=== PATIENT | male | born 1965 | race Caucasian/White ===

== ENCOUNTER 2022-05-21 07:31 | Inpatient (IN) ==
[2022-05-21] MEDS ORDERED: IOPAMIDOL 100 ML BOTTLE IV ONE (07:32)
--- NOTE | 2022-05-21 07:38 | Emergency Department Note ---
HPI General Chief complaint: Alcohol Stated complaint: Alcohol withdrawls Time Seen by Provider: 05/21/22 07:37 Mode of arrival: EMS History of Present Illness HPI Narrative: Narrative: Patient is a 56-year-old male with a past medical history of atrial fibrillati on, rectal cancer, alcohol withdrawal including DTs and patient, and bipolar disorder who presents to the emergency department due to desire to detox from alcohol, but concern potential withdrawal when doing this. Patient states that he binge drinks, and has gone days without alcohol, but has had severe alcohol withdrawal in the past, so wanted to be in a controlled setting as he desires to detox from alcohol at this time. He states that his last drink was approximately 2 to 3 hours ago. He states that he has also had shortness of breath and cough for the last couple of days. He denies runny nose or sore throat. He denies fevers or chills. He endorses chest pain at night. He states that it wakes him up. This is a sharp chest pain without radiation in the center of his chest. It worsens with deep breathing, but he has not noticed any other palliative or provocative factors. He has a history of atrial fibrillation has not been taking his medications, including blood thinner, for a week. Patient denies skin color changes or swelling of the extremities. He endorses intermittent constipation as well as intermittent diarrhea. He does notice blood in his stool, but states that this has been chronic with his rectal carcinoma. He states that he has had chemotherapy, but it has been a while since his last chemotherapy session. He denies any other concerns at this time. Related Data Allergies Allergy/AdvReac Type Severity Reaction Status Date / Time No Known Drug Allergies Allergy Verified 05/21/22 17:48 Review of Systems ROS ROS Narrative: Narrative: Constitutional: Denies fever or weakness Eyes: Denies eye pain or vision change ENT ED: Denies throat pain, hearing loss or rhinorrhea Cardiovascular: Reports chest pain; Denies dyspnea on exertion, orthopnea or edema Respiratory: Reports shortness of breath and cough; Denies phlegm or hemoptysis Gastrointestinal: Reports hematochezia; Denies abdominal pain, nausea, vomiting, diarrhea, constipation or melena Genitourinary: Denies dysuria, frequency, hematuria or incontinence Musculoskeletal: Denies back pain or myalgia Integumentary: Denies rash or lesions Neurological: Denies headache, weakness, numbness, confusion, abnormal gait or dizziness Psychiatric: Denies anxiety, suicidal thoughts or homicidal thoughts Endocrine: Denies fatigue or polyuria Hematological/Lymphatic: Denies easy bleeding or easy bruising [facility] Narrative Patient History Narrative: Narrative: Medical/Surgical/Family History All Active Problems Atrial fibrillation (Acute) Tremor (Acute) Nonsustained ventricular tachycardia (Acute) ADHD (Acute) Arthritis (Acute) Bipolar disorder (Acute) Rectal carcinoma (Acute) Rectal pain (Acute) Alcohol intoxication (Acute) UTI (urinary tract infection) (Acute) Headache (Acute) Seizure (Acute) Alcoholism /alcohol abuse (Acute) Finger fracture, left (Acute) Chest pain (Acute) Alcohol withdrawal (Acute) Hernia, hiatal (Acute) Head injury (Acute) Acute head injury (Acute) Traumatic hematoma of head (Acute) Medical History ADHD Alcohol intoxication Alcoholism /alcohol abuse Arthritis Atrial fibrillation Bipolar disorder Headache Nonsustained ventricular tachycardia Rectal carcinoma Rectal pain Seizure Tremor UTI (urinary tract infection) Surgical History No pertinent past surgical history Family History Other No pertinent family history Social History Smoking Status: Former smoker Exam Narrative Narrative: Narrative: General General appearance: Present alert; Absent anxious or appears intoxicated Head Head: Present atraumatic and normocephalic Eye Eye: Present PERRL and EOMI; Absent scleral icterus ENT ENT: Present mucous membranes moist; Absent nasal congestion Neck Neck: Present full ROM; Absent tenderness Chest Chest: Present normal inspection and symmetric chest wall rise; Absent tenderness Respiratory Respiratory: Present rales/crackles (Right lower lung field); Absent respiratory distress or accessory muscle use Cardiovascular Cardiovascular: Present regular rate, normal rhythm and normal heart sounds Adbominal Abdominal: Present soft and normal bowel sounds; Absent distention or tenderness Rectal Rectal: Present deferred Extremities Extremities: Present normal inspection and full ROM; Absent tenderness Back Back: Present normal inspection and full ROM; Absent tenderness Neurological Neurological: Present alert and oriented X3 Psychiatric Psychiatric: Present normal affect and normal mood Skin Skin: Present warm (WNL), dry and normal color Course Vital Signs Vital signs: Vital Signs Temperature 97.0 F 05/21/22 07:35 Pulse Rate 144 H 05/21/22 07:35 Respiratory Rate 20 05/21/22 07:35 Blood Pressure 142/117 05/21/22 07:35 Pulse Oximetry (%) 96 05/21/22 07:35 Oxygen Delivery Method 05/21/22 07:35 Temperature 97.8 F 05/21/22 17:38 Pulse Rate 120 H 05/21/22 17:46 Respiratory Rate 19 05/21/22 17:46 Blood Pressure 123/93 05/21/22 17:46 Pulse Oximetry (%) 94 05/21/22 17:46 Oxygen Delivery Method 05/21/22 17:44 Oxygen Flow Rate (L/min) 0 05/21/22 17:44 MDM MDM Narrative Medical decision making narrative: Narrative: Patient is a 56-year-old male who presents to the emergency department due to desire to detox from alcohol, but concern for alcohol withdrawal. Patient is found to have atrial fibrillation with RVR. We are giving patient ties him and will monitor response. Given patient's shortness of breath and chest pain there is concern for potential pneumonia, pulmonary embolus, or ACS. Patient is unlikely to have pericarditis or myocarditis given absence of EKG findings other than atrial fibrillation with RVR. Patient is found to have a low potassium as well as a low calcium. We will replete these. Patient's A. fib with RVR converted to normal sinus rhythm after diltiazem and half of a banana bag. Patient again converted to atrial fibrillation with RVR. We placed patient on a diltiazem drip at that time. Due to atrial fibrillation with RVR and absence of cardiology, as well as concern for bed availability we attempted to transfer this patient. I spoke to the hospitalist in [place] who refused to transfer patient stating that they did not offer a higher level of care and requested that I speak to our hospitalist. I spoke to Dr. Garcia who accepted patient for admission. Lab Data Result diagrams: 05/21/22 07:45 Labs: Lab Results 05/21/22 05/21/22 05/21/22 Range/Units 07:45 07:45 07:45 WBC 7.7 (4.5-11.0) K/mcL RBC 4.37 L (4.63-6.08) M/mcL Hgb 13.6 L (13.7-17.5) g/dL Hct 39.6 L (40.1-51.0) % POC Hct (41-55) MCV 90.6 (80.0-100.0) fL MCH 31.1 (26.0-34.0) pg MCHC 34.3 (31.0-36.0) g/dL RDW 13.7 (11.5-14.5) % Plt Count 253 (140-440) K/mcL MPV 10.3 (7.4-10.4) fL Immature Gran % (Auto) 0.3 (0.0-0.5) % Neut % (Auto) 80.8 H (38.0-78.0) % Lymph % (Auto) 8.7 L (15.5-49.0) % [place] % (Auto) 9.6 (1.0-12.0) % Eos % (Auto) 0.1 (0.0-7.0) % Baso % (Auto) 0.5 (0.0-2.0) % Lymph # (Auto) 0.67 L (1.50-4.80) K/mcL [place] # (Auto) 0.74 (0.10-0.90) K/mcL Eos # (Auto) 0.01 (0.00-0.70) K/mcL Baso # (Auto) 0.04 (0.00-0.30) K/mcL Immature Gran # 0.02 (0.00-0.05) K/mcl Absolute Neutrophils 6.23 (1.80-8.00) K/mcL POC Sodium (133-145) POC Potassium (3.3-5.1) POC Chloride (96-108) POC Total CO2 (22-30) POC BUN (6-20) POC Creatinine (0.6-1.2) POC Glucose (70-105) POC WB Ioniz Calcium (1.16-1.32) Magnesium 1.7 (1.6-2.5) mg/dL Total Bilirubin 0.5 (0.1-1.0) mg/dL Direct Bilirubin 0.2 (<0.3) mg/dL AST 108 H (<40) U/L ALT 65 H (<40) U/L Alkaline Phosphatase 128 H (39-117) U/L Total Protein 7.1 (5.9-8.4) gm/dL Albumin 4.2 (3.2-5.2) gm/dL Globulin 2.9 (2.2-3.7) gm/dL TSH 3.70 (0.27-5.01) uIU/mL Ethyl Alcohol mg/dL mg/dL Ethyl Alcohol g/dL (<0.010) gm/dL POC Troponin I (0.02-0.08) 05/21/22 05/21/22 05/21/22 Range/Units 07:51 08:05 08:41 WBC (4.5-11.0) K/mcL RBC (4.63-6.08) M/mcL Hgb (13.7-17.5) g/dL Hct (40.1-51.0) % POC Hct 43.0 (41-55) MCV (80.0-100.0) fL MCH (26.0-34.0) pg MCHC (31.0-36.0) g/dL RDW (11.5-14.5) % Plt Count (140-440) K/mcL MPV (7.4-10.4) fL Immature Gran % (Auto) (0.0-0.5) % Neut % (Auto) (38.0-78.0) % Lymph % (Auto) (15.5-49.0) % [place] % (Auto) (1.0-12.0) % Eos % (Auto) (0.0-7.0) % Baso % (Auto) (0.0-2.0) % Lymph # (Auto) (1.50-4.80) K/mcL [place] # (Auto) (0.10-0.90) K/mcL Eos # (Auto) (0.00-0.70) K/mcL Baso # (Auto) (0.00-0.30) K/mcL Immature Gran # (0.00-0.05) K/mcl Absolute Neutrophils (1.80-8.00) K/mcL POC Sodium 140 (133-145) POC Potassium 3.1 L (3.3-5.1) POC Chloride 99 (96-108) POC Total CO2 27.0 (22-30) POC BUN 5 L (6-20) POC Creatinine 1.1 (0.6-1.2) POC Glucose 105 (70-105) POC WB Ioniz Calcium 0.91 L (1.16-1.32) Magnesium (1.6-2.5) mg/dL Total Bilirubin (0.1-1.0) mg/dL Direct Bilirubin (<0.3) mg/dL AST (<40) U/L ALT (<40) U/L Alkaline Phosphatase (39-117) U/L Total Protein (5.9-8.4) gm/dL Albumin (3.2-5.2) gm/dL Globulin (2.2-3.7) gm/dL TSH (0.27-5.01) uIU/mL Ethyl Alcohol mg/dL 387.0 mg/dL Ethyl Alcohol g/dL 0.387 H (<0.010) gm/dL POC Troponin I 0 L (0.02-0.08) ED POC Tests ED POC Tests: CITLALY - SARS Antigen Negative EKG Data EKG #1: EKG attestation: Yes I reviewed and interpreted this EKG. EKG results narrative: Atrial fibrillation with a rate of 137, normal axis, T wave flattening in 3, and absence of ST elevation or depression EKG #2: EKG attestation: Yes I reviewed and interpreted this EKG. EKG results narrative: Normal sinus rhythm with a rate of 95, equivocal axis, T wave flattening in lead III, W[place] 190, QRS of 100, QTC of 522, and absence of ST elevation or depression Discharge Plan Patient/Caregiver Discharge Instructions Pt seen by SUPER[facility] ROOM/PA only: No Patient Disposition: Xfer As Inpt ([facility]) Discharge Date/Time: 05/21/22 17:28
[2022-05-21] MEDS ORDERED: 0.9 % SODIUM CHLORIDE 1,000 ML IV ONE (07:48)
[2022-05-21] MEDS ORDERED: THIAMINE 100 MG in 0.9 % SODIUM CHLORIDE 50 ML IV ONE ×2 (07:48→16:28)
[2022-05-21] MEDS ORDERED: DILTIAZEM 25 MG/5 ML VIAL IV ONE (08:12)
[2022-05-21 08:23] LABS: POC Calcium, Ionized 0.91 (1.16-1.32); POC Creatinine 1.1 (0.6-1.2); POC Potassium 3.1 (3.3-5.1)
[2022-05-21] MEDS ORDERED: CALCIUM W/VIT D3 500 MG TABLET PO ONE (08:27)
[2022-05-21] MEDS ORDERED: MAGNESIUM SULFATE 8.12 MEQ in DEXTROSE 5% IN WATER 50 ML IV ONE ×2 (08:27→16:31)
[2022-05-21] MEDS ORDERED: POTASSIUM CHLORIDE 20 MEQ TABLET PO ONE (08:27)
[2022-05-21] MEDS ORDERED: POTASSIUM CHLORIDE 40 MEQ in DEXTROSE 5% IN WATER 250 ML IV ONE (08:27)
[2022-05-21 08:38] LABS: Basophils # (Auto) 0.04 K/mcL (0.00-0.30); Basophils % (Auto) 0.5 % (0.0-2.0); Eosinophils # (Auto) 0.01 K/mcL (0.00-0.70); Eosinophils % (Auto) 0.1 % (0.0-7.0); Hematocrit 39.6 % (40.1-51.0); Hemoglobin 13.6 g/dL (13.7-17.5); Lymphocytes # (Auto) 0.67 K/mcL (1.50-4.80); Lymphocytes % (Auto) 8.7 % (15.5-49.0); Mean Cell Volume 90.6 fL (80.0-100.0); Mean Corpuscular HGB Conc 34.3 g/dL (31.0-36.0); Mean Platelet Volume 10.3 fL (7.4-10.4); Monocytes # (Auto) 0.74 K/mcL (0.10-0.90); Monocytes % (Auto) 9.6 % (1.0-12.0); Neutrophils % (Auto) 80.8 % (38.0-78.0); Platelet Count 253 K/mcL (140-440); RBC 4.37 M/mcL (4.63-6.08); Red Cell Distribution Width 13.7 % (11.5-14.5); WBC 7.7 K/mcL (4.5-11.0)
[2022-05-21 08:50] LABS: Alcohol,Blood 0.387 gm/dL (<0.010)
[2022-05-21 08:55] LABS: ALT/SGPT 65 U/L (<40); AST/SGOT 108 U/L (<40); Albumin 4.2 gm/dL (3.2-5.2); Alkaline Phosphatase 128 U/L (39-117); Bilirubin,Direct 0.2 mg/dL (<0.3); Bilirubin,Total 0.5 mg/dL (0.1-1.0); Globulin 2.9 gm/dL (2.2-3.7)
[2022-05-21] MEDS: [UNRECOGNIZED DRUG - REMARK] IV SCH ×3 (09:44→18:06)
--- NOTE | 2022-05-21 10:17 | Cat Scan Report ---
CLINICAL INFORMATION: Dyspnea COMPARISON: Chest CT 10/31/2016 and 10/16/2021. TECHNIQUE: 80ml of Isovue-370 were injected intravenously. Using SmartPrep to maximize pulmonary artery opacification, .625mm helical slices were obtained from the lung apices through the lung bases. Following reconstruction, 2.5 mm sagittal, coronal, and axial reformations were processed. The exam was reviewed at mediastinal, lung, and bone windows. The exam was performed using radiation dose optimization techniques including, but not limited to, automated exposure control, adjustment of the mA and/or kV according to patient size and use of iterative reconstruction technique. FINDINGS: Pulmonary parenchymal windows again show a massive (19 cm) hiatal hernia containing the entire stomach, descending duodenum, a segment of transverse colon and pancreas. This is unchanged. The hernia has resulted in compressive atelectasis of nearly the entire right lower lobe with only superior segment sparing. There is also atelectasis of the medial basilar segment left lower lobe. There are no infiltrates or new pulmonary abnormalities. The pleural spaces are normal. Mediastinal windows show the pulmonary arteries are well-opacified and normal in diameter colon no evidence of embolus. Thoracic aorta is also normal in diameter with minimal intimal thickening. The heart is normal in size and configuration-no significant plaque in the coronary arteries. There is no adenopathy in the mediastinal, hilar or axillary regions. A right IJ Port-A-Cath tip overlies the SVC/ right atrial junction as before. Thyroid is unremarkable. Bone windows show mild chronic wedging of the midthoracic spine is stable. Soft tissues the chest wall unremarkable.Images through the superior abdomen show no abnormality. IMPRESSION: 1. No evidence of pulmonary embolus or other acute cardiopulmonary process. 2. Massive hiatal hernia containing the entire stomach, descending duodenum, mid transverse colon and pancreas. Mass effect from the hernia results in subtotal compressive atelectasis of the right lower lobe and atelectasis of the medial basilar segment left lower lobe. No change. Interpreted and Authenticated by: Juventino Raza 05/21/22
--- NOTE | 2022-05-21 10:21 | XRay Report ---
CLINICAL INFORMATION: Dyspnea COMPARISON: 05/05/2022. TECHNIQUE: Portable FINDINGS: Heart is normal in size. Right IJ Port-A-Cath tip is in satisfactory position overlying the SVC right atrial junction. Massive hiatal hernia spanning 19 cm is unchanged. The remaining mediastinum and pulmonary vessels are normal. Compressive atelectasis of the right lower lobe, due to hernia, seen as before. Lungs are otherwise clear. IMPRESSION: Massive hiatal hernia resulting in subtotal atelectasis right lower lobe. Interpreted and Authenticated by: Juventino Raza 05/21/22
[2022-05-21] MEDS ORDERED: DILTIAZEM 125 MG in DEXTROSE 5% IN WATER 100 ML IV SCH (15:00)
[2022-05-21] MEDS ORDERED: DIGOXIN 500 MCG/2 ML AMPUL IV ONE (15:55)
[2022-05-21] MEDS ORDERED: 0.9 % SODIUM CHLORIDE 250 ML IV SCH (16:00)
[2022-05-21] MEDS ORDERED: LORazepam 2 MG/ML VIAL IV ONE (16:22)
--- NOTE | 2022-05-21 16:26 | Internal Med History&Physical ---
HPI History of Present Illness Patient information: Note initiated : 05/21/22 at 4:12 pm Service Date, if different from initiated Date: [] Patient: Mayo Sheridan 56 y/o M admitted on for Alcohol withdrawls. Chief Complaint: [] History of present illness: Mr. Sheridan is a 56 year old M Patient with history of alcohol abuse and withdrawal presents to the ED concerned about alcohol withdrawal. Patient desires to get drinking. Patient was admitted to [facility] in September 2021 for alcohol withdrawal and A. fib with RVR. He did undergo a cardioversion while there. He was actually admitted at [facility] October 14 and then transferred to [facility] on the and was discharged on the . He was most recently admitted to [facility] on May 05 and was discharged on the for alcohol withdrawal and A. fib as well. Also found to have a heart failure with reduced ejection fraction of 35% on the admit at [place]. He was discharged on digoxin and amiodarone, his diltiazem was stopped. He was started on a low-dose of lisinopril 2.5 as well as Aldactone and Lasix. At his most recent visit at [facility] I do not see amiodarone or digoxin on his record but I see diltiazem was given. It looks like his spironolactone and furosemide were stopped because of low blood pressures. He says when he was discharged he did not have anything to drink for 3 days and then he started drinking again, this was about a week ago. Also at the time he stopped taking his medications because he heard from a physician in the past that if you are drinking there is no point taking your medications. This includes Eliquis. He says he has a history of delirium tremens and seizures from withdrawal. And carries a diagnosis of bipolar disorder. He also has a history of rectal cancer and is undergoing chemotherapy with Dr. Borges. Patient did have some sharp chest pain in the middle the night 3 nights ago which lasted for seconds otherwise no chest pain no shortness of breath. Patient started to feel withdrawal symptoms with tremors and nausea. Also complains of headaches. In the ER he was in A. fib RVR was started on a diltiazem bolus and drip with poor response. Patient given a banana bag in the ED, patient temporarily converted to normal sinus rhythm and then went back into A. fib Review of Systems: Pertinent positives as above. Denies fever/chills/ abdominal pain/cough/d yspnea/diarrhea. Remaining 10 point review of system reviewed negative PFSH PFSH All Active Problems Atrial fibrillation (Acute) Tremor (Acute) Nonsustained ventricular tachycardia (Acute) ADHD (Acute) Arthritis (Acute) Bipolar disorder (Acute) Rectal carcinoma (Acute) Rectal pain (Acute) Alcohol intoxication (Acute) UTI (urinary tract infection) (Acute) Headache (Acute) Seizure (Acute) Alcoholism /alcohol abuse (Acute) Finger fracture, left (Acute) Chest pain (Acute) Alcohol withdrawal (Acute) Hernia, hiatal (Acute) Head injury (Acute) Acute head injury (Acute) Traumatic hematoma of head (Acute) Medical History ADHD Alcohol intoxication Alcoholism /alcohol abuse Arthritis Atrial fibrillation Bipolar disorder Headache Nonsustained ventricular tachycardia Rectal carcinoma Rectal pain Seizure Tremor UTI (urinary tract infection) Surgical History No pertinent past surgical history Family History Other No pertinent family history MEDS/ALLERGIES Home Medications and Allergies Home Medications Medication Instructions Recorded Confirmed Type lamotrigine 25 mg tablet 25 mg PO TID 01/10/17 01/21/21 History sertraline 25 mg tablet 25 mg PO DAILY 01/10/17 01/21/21 History chlordiazepoxide HCl 25 mg capsule 25 mg PO Q8H PRN alcohol 01/21/21 Rx withdrawal #21 caps Allergies Allergy/AdvReac Type Severity Reaction Status Date / Time No Known Drug Allergies Allergy Verified 02/09/21 18:49 EXAM Constitutional Vitals: Temp Pulse Resp BP Pulse Ox O2 Del Method 97.0 F 131 H 15 118/81 95 05/21/22 07:35 05/21/22 15:41 05/21/22 15:41 05/21/22 15:41 05/21/22 15:41 05/21/22 07:35 Exam: General: Alert, Awake, mild restlessness Eyes/N/T: EOMI, PERRL, dry MM Head/Neck: neck supple, normocephalic atraumatic CV: tachy and irreg, No murmurs, normal s1/s2 Pulm: Clear b/l, no wheezing/rhonchi/rales Abd: soft, nontender, +BS x4 Ext: no clubbing/cyanosis/edema Neuro: Alert, no focal deficits, moves all extremities, CN 2-12 grossly intact, tremoulous Skin: warm/dry DATA Data Completed and Pending Labs: Labs from last 24 hours 05/21/22 05/21/22 05/21/22 08:41 08:05 07:51 WBC RBC Hgb Hct POC Hct 43.0 MCV MCH MCHC RDW Plt Count MPV Immature Gran % (Auto) Neut % (Auto) Lymph % (Auto) [place] % (Auto) Eos % (Auto) Baso % (Auto) Lymph # (Auto) [place] # (Auto) Eos # (Auto) Baso # (Auto) Immature Gran # Absolute Neutrophils POC Sodium 140 POC Potassium 3.1 L POC Chloride 99 POC Total CO2 27.0 POC BUN 5 L POC Creatinine 1.1 POC Glucose 105 POC WB Ioniz Calcium 0.91 L Magnesium Total Bilirubin Direct Bilirubin AST ALT Alkaline Phosphatase Total Protein Albumin Globulin TSH Ethyl Alcohol mg/dL 387.0 Ethyl Alcohol g/dL 0.387 H POC Troponin I 0 L 05/21/22 05/21/22 05/21/22 07:45 07:45 07:45 WBC 7.7 RBC 4.37 L Hgb 13.6 L Hct 39.6 L POC Hct MCV 90.6 MCH 31.1 MCHC 34.3 RDW 13.7 Plt Count 253 MPV 10.3 Immature Gran % (Auto) 0.3 Neut % (Auto) 80.8 H Lymph % (Auto) 8.7 L [place] % (Auto) 9.6 Eos % (Auto) 0.1 Baso % (Auto) 0.5 Lymph # (Auto) 0.67 L [place] # (Auto) 0.74 Eos # (Auto) 0.01 Baso # (Auto) 0.04 Immature Gran # 0.02 Absolute Neutrophils 6.23 POC Sodium POC Potassium POC Chloride POC Total CO2 POC BUN POC Creatinine POC Glucose POC WB Ioniz Calcium Magnesium Pending Total Bilirubin 0.5 Direct Bilirubin 0.2 AST 108 H ALT 65 H Alkaline Phosphatase 128 H Total Protein 7.1 Albumin 4.2 Globulin 2.9 TSH Pending Ethyl Alcohol mg/dL Ethyl Alcohol g/dL POC Troponin I A/P Narrative A/P Narrative: A: *A. fib RVR: poorly controlled -Was supposed to be on digoxin/amiodarone/Eliquis [facility] *Alcohol abuse and withdrawal: high risk for DT's & Sz *Hypokalemia: *h/o systolic(35%) CHF: was supposed to be on lasix/aldactone, lisinopril 2.5 per [facility] notes *Bipolar/depression/anxiety: *Rectal cancer: Undergoing chemotherapy with Dr. Borges * P: -icu -esmolol gtt, digoxin -Monitor electrolytes closely and replete -CIWA, vitamins, prn benzo -IVF - -Home medication reconciliation -pt/ot -Would likely benefit from naltrexone prescription upon discharge, Follow-up with Dr. Veloz -Follow-up with general surgery for large hiatal hernia -ppx: lovenox bid / ppi full code Time Spent With Patient Time: Total time spent is greater than 50% in coordination of care (as documented) at patient's floor/unit and/or counseling patient: Critical Care Time: Yes Total Critical Care Time: 60
[2022-05-21 16:28] LABS: Thyroid Stimulating Hormone 3.7 uIU/mL (0.27-5.01)
[2022-05-21] MEDS ORDERED: DIAZEPAM 10 MG/2 ML SYRINGE IV ONE (16:42)
[2022-05-21] MEDS: ESMOLOL 2,500 MG in PREMIX 1 BAG IV SCH ×2 (17:07→22:59)
[2022-05-21] MEDS ORDERED: DIAZEPAM 5 MG TABLET PO PRN (17:44)
[2022-05-21] MEDS ORDERED: IPRATROPIUM/ALBUTEROL 3 ML AMPUL.NEB NEB PRN (17:44)
[2022-05-21] MEDS ORDERED: ONDANSETRON 4 MG/2 ML VIAL IV PRN (17:44)
[2022-05-21] MEDS ORDERED: POTASSIUM CHLORIDE 20 MEQ in DEXTROSE 5%-1/2NS 1,000 ML IV SCH (17:44)
[2022-05-21] MEDS ORDERED: LORazepam 2 MG/ML VIAL ONE (19:09)
[2022-05-21] MEDS ORDERED: ONDANSETRON 4 MG/2 ML VIAL ONE (19:09)
[2022-05-21] MEDS ORDERED: DEXTROSE 5%-1/2NS W/20MEQ KCL 1,000 ML IV SCH (19:15)
[2022-05-21] MEDS ORDERED: MIDAZOLAM HCL 10 MG/10 ML VIAL IJ SCH (19:15)
[2022-05-21] MEDS ORDERED: MIDAZOLAM 2 MG/2 ML VIAL ONE (19:38)
[2022-05-21] MEDS: ONDANSETRON 4 MG/2 ML VIAL IV PRN ×2 (20:29→23:44)
[2022-05-21] MEDS ORDERED: ONDANSETRON 4 MG ODT TABLET ONE ×2 (20:37→23:44)
[2022-05-21] MEDS: DIAZEPAM 5 MG TABLET PO PRN ×2 (21:30→23:35)
[2022-05-21] MEDS: ENOXAPARIN 100 MG/ML SYRINGE SQ SCH (21:32)
[2022-05-21] MEDS: DOCUSATE SODIUM 100 MG CAPSULE PO SCH (21:33)
[2022-05-21] MEDS: DIGOXIN 500 MCG/2 ML AMPUL IV SCH (21:50)
[2022-05-21] MEDS: FAMOTIDINE/PF 20 MG/2 ML VIAL IV SCH (22:03)
[2022-05-21] MEDS: ACETAMINOPHEN 325 MG TABLET PO PRN (22:04)
[2022-05-21] MEDS: 0.9 % SODIUM CHLORIDE 10 ML SYRINGE IV SCH ×2 (22:05)
[2022-05-21 22:18] LABS: Amphetamine Screen,Urine None detected; Barbiturate Screen,Urine Suspect positive; Benzodiazepines Screen,Urine Suspect positive; Cannabinoid Screen,Urine None detected; Cocaine Screen,Urine None detected; Opiate Screen,Urine None detected; Oxycodone, Urine Screen None detected; Phencyclidine Screen,Urine None detected
[2022-05-22] MEDS: ESMOLOL 2,500 MG in PREMIX 1 BAG IV SCH ×5 (01:12→20:57)
[2022-05-22] MEDS: LORazepam 2 MG/ML VIAL IV PRN ×9 (01:50→18:57)
[2022-05-22] MEDS: DIGOXIN 500 MCG/2 ML AMPUL IV SCH (04:00)
[2022-05-22] MEDS: ONDANSETRON 4 MG/2 ML VIAL IV PRN ×4 (04:00→23:44)
[2022-05-22] MEDS ORDERED: ONDANSETRON 4 MG ODT TABLET ONE ×2 (04:17→04:42)
[2022-05-22] MEDS ORDERED: LORazepam 2 MG/ML VIAL ONE (04:18)
[2022-05-22] MEDS: 0.9 % SODIUM CHLORIDE 10 ML SYRINGE IV SCH ×6 (05:48→20:57)
[2022-05-22 06:40] LABS: Hematocrit 33.6 % (40.1-51.0); Hemoglobin 11.5 g/dL (13.7-17.5); Mean Cell Volume 93.9 fL (80.0-100.0); Mean Corpuscular HGB Conc 34.2 g/dL (31.0-36.0); Mean Platelet Volume 10.4 fL (7.4-10.4); Platelet Count 178 K/mcL (140-440); RBC 3.58 M/mcL (4.63-6.08); Red Cell Distribution Width 13.8 % (11.5-14.5); WBC 2.5 K/mcL (4.5-11.0)
[2022-05-22 07:14] LABS: ALT/SGPT 53 U/L (<40); AST/SGOT 92 U/L (<40); Albumin 3.1 gm/dL (3.2-5.2); Albumin/Globulin Ratio 1.3 (1.0-2.3); Alkaline Phosphatase 105 U/L (39-117); Bilirubin,Direct 0.3 mg/dL (<0.3); Bilirubin,Total 0.9 mg/dL (0.1-1.0); Blood Urea Nitrogen 4 mg/dL (6-20); Calcium 7.6 mg/dL (8.6-10.4); Carbon Dioxide 23 mmol/L (22-30); Chloride 98 mmol/L (96-108); Globulin 2.4 gm/dL (2.2-3.7); Glomerular Filtration Rate 110; Glucose 67 mg/dL (70-105); Lactate Dehydrogenase 305 U/L (135-225); Phosphorous 2.6 mg/dL (2.5-4.5); Triglycerides 47 mg/dL (<150); Uric Acid 3.9 mg/dL (2.5-8.0)
--- NOTE | 2022-05-22 08:31 | Internal Med Progress Note ---
SUBJECTIVE Subjective Patient information: Note initiated : 05/22/22 at 8:24 am Service Date, if different from initiated Date: [] Patient: Mayo Sheridan 56 y/o M admitted on 05/21/22 for Alcohol withdrawls. Chief Complaint: [] Interval history: History of present illness: Mr. Sheridan is a 56 year old M Patient with history of alcohol abuse and withdrawal presents to the ED concerned about alcohol withdrawal. Patient desires to get drinking. Patient was admitted to [facility] in September 2021 for alcohol withdrawal and A. fib with RVR. He did undergo a cardioversion while there. He was actually admitted at [facility] October 14 and then transferred to [facility] on the and was discharged on the . He was most recently admitted to [facility] on May 05 and was discharged on the for alcohol withdrawal and A. fib as well. Also found to have a heart failure with reduced ejection fraction of 35% on the admit at [facility]. He was discharged on digoxin and amiodarone, his diltiazem was stopped. He was started on a low-dose of lisinopril 2.5 as well as Aldactone and Lasix. At his most recent visit at [facility] I do not see amiodarone or digoxin on his record but I see diltiazem was given. It looks like his spironolactone and furosemide were stopped because of low blo od pressures. He says when he was discharged he did not have anything to drink for 3 days and then he started drinking again, this was about a week ago. Also at the time he stopped taking his medications because he heard from a physician in the past that if you are drinking there is no point taking your medications. This includes Eliquis. He says he has a history of delirium tremens and seizures from withdrawal. And carries a diagnosis of bipolar disorder. He also has a history of rectal cancer and is undergoing chemotherapy with Dr. Borges. Patient did have some sharp chest pain in the middle the night 3 nights ago which lasted for seconds otherwise no chest pain no shortness of breath. Patient started to feel withdrawal symptoms with tremors and nausea. Also complains of headaches. In the ER he was in A. fib RVR was started on a diltiazem bolus and drip with poor response. Patient given a banana bag in the ED, patient temporarily converted to normal sinus rhythm and then went back into A. fib 05/22 Patient's rhythm converted to normal sinus rhythm last night. Still on esmolol drip. We will start metoprolol and wean off the drip. P.o. diazepam and as needed IV Ativan for elevated CIWA. Leukopenia noted. Mild hyponatremia. Transaminitis. Liver ultrasound pending Review of Systems: denies headache/fever/chills/nausea/vomiting/chest or abdominal pain/cough/dyspn ea/diarrhea. Otherwise see above. Constitutional Vitals: Vital Signs Temp Pulse Resp BP Pulse Ox O2 Del Method O2 Flow Rate 98.1 F 67 24 H 134/83 97 2 05/22/22 08:01 05/22/22 07:01 05/22/22 08:01 05/22/22 08:01 05/22/22 08:01 05/22/22 04:00 05/22/22 04:40 Period Temp Pulse Resp BP Sys/Melendez Pulse Ox O2 Del Method O2 Flow Rate Last 24 Hr 97.1 F-98.1 F 25-145 9-29 83-166/56-146 91-99 Nasal Cannula- Room Air 0-2 Intake and Output 05/21/22 05/22/22 05/22/22 21:59 05:59 13:59 Intake Total 1164 1510 Output Total 500 555 Balance 664 955 Weight 90.208 kg 90.22 kg Intake & Output: Intake & Output 05/21/22 05/22/22 05/22/22 21:59 05:59 13:59 Intake Total 1164 1510 Output Total 500 555 Balance 664 955 Weight 90.208 kg 90.22 kg Intake: IV 1164 610 Cardizem 125 mg In Dextrose 5% 3 in Water 100 ml @ 5 MG/HR 5 mls /hr IV Q12H [facility] Rx#:[id number] Brevibloc 2,500 mg In Premix 1 127 610 Bag @ 50 MCG/KG/MIN 27.76 mls/ hr IV .Q9H1M [facility] Rx#:[id number] Potassium Chloride 40 Meq 1034 Magnesium Sulfate 16.24 Meq Infuvite Adult 10 ml In Sodium Chloride 0.9% 1,000 ml @ 250 mls/hr IV .Q4H9M [facility] Rx#: [id number] Oral 0 900 Output: Void Amount 500 555 # of times incontinent of urine 0 Other: Meal Dinner Percent of Meal Consumed 25% Feeding Ability Independent Urine Appearance Clear Clear Urine Color Dark Yellow Light [place]oli Urine Odor Normal # Voids 0 # Bowel Movements 0 # of times incontinent of 0 Bowels Exam: General: Alert, Awake, mild restlessness Eyes/N/T: EOMI, Head/Neck: neck supple, CV: RRR, No murmurs, Pulm: Clear b/l, no wheezing/rhonchi/rales Abd: soft, nontender, +BS x4 Ext: no clubbing/cyanosis/edema Neuro: Alert, no focal deficits, moves all extremities, tremoulous Skin: warm/dry OBJ DATA Labs CBC & Chem 7: 05/22/22 05:18 05/22/22 05:18 Labs: Abnormal Lab Results 05/22/22 05/22/22 05/21/22 05:18 05:18 21:29 WBC 2.5 L RBC 3.58 L Hgb 11.5 L Hct 33.6 L Neut % (Auto) Lymph % (Auto) Lymph # (Auto) Sodium 132 L POC Potassium POC BUN BUN 4 L Creatinine 0.6 L Glucose 67 L Calcium 7.6 L POC WB Ioniz Calcium Direct Bilirubin 0.3 H GGT 85 H AST 92 H ALT 53 H Alkaline Phosphatase Lactate Dehydrogenase 305 H Total Protein 5.5 L Albumin 3.1 L Ur Barbiturates Screen Suspect positive A U Benzodiazepines Scrn Suspect positive A Ethyl Alcohol g/dL POC Troponin I 05/21/22 05/21/22 05/21/22 08:41 08:05 07:51 WBC RBC Hgb Hct Neut % (Auto) Lymph % (Auto) Lymph # (Auto) Sodium POC Potassium 3.1 L POC BUN 5 L BUN Creatinine Glucose Calcium POC WB Ioniz Calcium 0.91 L Direct Bilirubin GGT AST ALT Alkaline Phosphatase Lactate Dehydrogenase Total Protein Albumin Ur Barbiturates Screen U Benzodiazepines Scrn Ethyl Alcohol g/dL 0.387 H POC Troponin I 0 L 05/21/22 05/21/22 07:45 07:45 WBC RBC 4.37 L Hgb 13.6 L Hct 39.6 L Neut % (Auto) 80.8 H Lymph % (Auto) 8.7 L Lymph # (Auto) 0.67 L Sodium POC Potassium POC BUN BUN Creatinine Glucose Calcium POC WB Ioniz Calcium Direct Bilirubin GGT AST 108 H ALT 65 H Alkaline Phosphatase 128 H Lactate Dehydrogenase Total Protein Albumin Ur Barbiturates Screen U Benzodiazepines Scrn Ethyl Alcohol g/dL POC Troponin I Meds: Medications Acetaminophen (Acetaminophen 325 Mg Tablet) 650 mg PO Q4-6HP PRN; Protocol PRN Reason: Per Pain Protocol/Fever > 101 Last Admin: 05/21/22 22:04 Dose: 650 mg Albuterol/Ipratropium (Ipratropium/Albuterol 3 Ml Ampul.Neb) 3 ml NEB Q4HRT PRN PRN Reason: dyspnea Diazepam (Diazepam 5 Mg Tablet) 5 mg PO Q2HP PRN PRN Reason: Alcohol Withdrawal/Assess CIWA Last Admin: 05/21/22 23:35 Dose: 5 mg Docusate Sodium (Docusate Sodium 100 Mg Capsule) 100 mg PO BID [facility] Last Admin: 05/21/22 21:33 Dose: 100 mg Enoxaparin Sodium (Enoxaparin 100 Mg/Ml Syringe) 90 mg SQ BID [facility] Last Admin: 05/21/22 21:32 Dose: 90 mg Famotidine (Famotidine/Pf 20 Mg/2 Ml Vial) 20 mg IV Q12 [facility] Last Admin: 05/21/22 22:03 Dose: 20 mg Folic Acid (Folic Acid 1 Mg Tablet) 1 mg PO DAILY [facility] Esmolol HCl 2,500 mg/ Premix 250 mls @ 27.76 mls/hr IV .Q9H1M [facility]; Protocol Last Admin: 05/22/22 05:42 Dose: 125 mcg/kg/min, 69.4 mls/hr Thiamine HCl 100 mg/ Sodium (Chloride) 51 mls @ 50 mls/hr IV DAILY [facility] Iron Carb/Multivit/Disassembler Product/Folic Acid (Multivit,Ther Iron,Ca,Fa & Min 1 Tablet) 1 tab PO DAILY [facility] Lamotrigine (Lamotrigine 100 Mg Tablet) 150 mg PO DAILY [facility] Lorazepam (Lorazepam 2 Mg/Ml Vial) 0 mg IV Q4HP PRN; Protocol PRN Reason: Alcohol Withdrawal/Assess CIWA Last Admin: 05/22/22 05:55 Dose: 2 mg Ondansetron HCl (Ondansetron 4 Mg/2 Ml Vial) 4 mg IV Q4-6HP PRN PRN Reason: Nausea And Vomiting Last Admin: 05/22/22 04:00 Dose: 4 mg Sodium Chloride (0.9 % Sodium Chloride 10 Ml Syringe) 10 ml IV Q8 [facility] Last Admin: 05/22/22 05:48 Dose: Not Given Sodium Chloride (0.9 % Sodium Chloride 10 Ml Syringe) 10 ml IV Q8 [facility] Last Admin: 05/22/22 05:48 Dose: Not Given A/P Narrative A/P Narrative: A: *A. fib RVR: difficult to control in ED, now improved on esmolol gtt, converted to NSR o/n -Was supposed to be on digoxin/amiodarone/Eliquis per notes from [facility] in September *Alcohol abuse and withdrawal: high risk for DT's & Sz *Hyponatremia/Hypokalemia: *h/o systolic(35%) CHF: was supposed to be on lasix/aldactone, lisinopril 2.5 per [facility] notes *Bipolar/depression/anxiety: *Rectal cancer: Undergoing chemotherapy with Dr. Borges *Leukopenia, acute on chronic: *Transaminitis: likely 2/2 etoh P: -icu -esmolol gtt, digoxin, start metoprolol -Monitor electrolytes closely and replete -CIWA, vitamins, prn benzo -IVF -liver u/s -pt/ot -Would likely benefit from naltrexone prescription upon discharge, Follow-up with Dr. Veloz -Follow-up with general surgery for large hiatal hernia -ppx: lovenox bid / ppi full code Time Spent With Patient Time: Total time spent is greater than 50% in coordination of care (as documented) at patient's floor/unit and/or counseling patient: Total time spent with greater than 50% in coordination of care (as documented) at patient's floor/unit and/or counseling patient:: 35 - 50 minutes QUALITY VTE Deep Vein Thrombosis/Pulmonary Embolism Present on Admission: No
[2022-05-22] MEDS ORDERED: PREMIX 2 BAG IV ONE (08:55)
[2022-05-22] MEDS: ENOXAPARIN 100 MG/ML SYRINGE SQ SCH ×2 (09:27→20:56)
[2022-05-22] MEDS: MULTIVIT,THER IRON,CA,FA & MIN 1 TABLET PO SCH (09:28)
[2022-05-22] MEDS: lamoTRIgine 100 MG TABLET PO SCH (09:28)
[2022-05-22] MEDS: DOCUSATE SODIUM 100 MG CAPSULE PO SCH ×2 (09:28→20:56)
[2022-05-22] MEDS: FOLIC ACID 1 MG TABLET PO SCH (09:28)
[2022-05-22] MEDS: FAMOTIDINE/PF 20 MG/2 ML VIAL IV SCH ×2 (09:28→20:56)
[2022-05-22] MEDS ORDERED: ESMOLOL 250 ML IV ONE (09:31)
[2022-05-22] MEDS: METOPROLOL TARTRATE 50 MG TABLET PO SCH ×2 (10:42→20:56)
[2022-05-22] MEDS: THIAMINE 100 MG in 0.9 % SODIUM CHLORIDE 50 ML IV SCH (13:10)
[2022-05-22] MEDS: DIGOXIN 125 MCG TABLET PO SCH (13:29)
--- NOTE | 2022-05-22 13:38 | Ultrasound Report ---
CLINICAL INFORMATION: 11 LFTs history of alcohol use COMPARISON: None. FINDINGS: Liver is moderately enlarged with a vertical dimension of 20 cm in midclavicular line. Echotexture is heterogeneous and elevated. No focal hepatic lesion. Gallbladder and bile ducts are normal CBD is 4 mm. Pancreas is not visualized. No free fluid. IMPRESSION: Moderate hepatomegaly with elevated, inhomogeneous echotexture compatible with fatty change or other diffuse hepatocellular process. Interpreted and Authenticated by: Juventino Raza 05/22/22
[2022-05-22] MEDS: ACETAMINOPHEN 325 MG TABLET PO PRN ×2 (18:57→23:44)
[2022-05-23] MEDS: LORazepam 2 MG/ML VIAL IV PRN ×6 (00:05→19:03)
[2022-05-23] MEDS: ONDANSETRON 4 MG/2 ML VIAL IV PRN (05:15)
[2022-05-23] MEDS: ACETAMINOPHEN 325 MG TABLET PO PRN ×2 (05:26→19:31)
[2022-05-23] MEDS: DIAZEPAM 5 MG TABLET PO PRN ×3 (05:34→21:14)
[2022-05-23] MEDS: ESMOLOL 2,500 MG in PREMIX 1 BAG IV SCH ×2 (05:55→12:51)
[2022-05-23] MEDS: 0.9 % SODIUM CHLORIDE 10 ML SYRINGE IV SCH ×4 (05:56→21:15)
[2022-05-23 06:04] LABS: Basophils # (Auto) 0.03 K/mcL (0.00-0.30); Basophils % (Auto) 0.9 % (0.0-2.0); Eosinophils # (Auto) 0.06 K/mcL (0.00-0.70); Eosinophils % (Auto) 1.9 % (0.0-7.0); Hematocrit 34.3 % (40.1-51.0); Hemoglobin 11.6 g/dL (13.7-17.5); Lymphocytes % (Auto) 9.4 % (15.5-49.0); Mean Cell Volume 94.2 fL (80.0-100.0); Mean Corpuscular HGB Conc 33.8 g/dL (31.0-36.0); Mean Platelet Volume 10.9 fL (7.4-10.4); Monocytes # (Auto) 0.26 K/mcL (0.10-0.90); Monocytes % (Auto) 8.2 % (1.0-12.0); Platelet Count 167 K/mcL (140-440); RBC 3.64 M/mcL (4.63-6.08); Red Cell Distribution Width 13.4 % (11.5-14.5); WBC 3.2 K/mcL (4.5-11.0)
[2022-05-23 06:22] LABS: ALT/SGPT 47 U/L (<40); AST/SGOT 80 U/L (<40); Albumin 2.9 gm/dL (3.2-5.2); Albumin/Globulin Ratio 1.2 (1.0-2.3); Alkaline Phosphatase 110 U/L (39-117); Bilirubin,Direct 0.2 mg/dL (<0.3); Bilirubin,Total 0.7 mg/dL (0.1-1.0); Blood Urea Nitrogen 5 mg/dL (6-20); Calcium 7.9 mg/dL (8.6-10.4); Carbon Dioxide 26 mmol/L (22-30); Chloride 100 mmol/L (96-108); Globulin 2.4 gm/dL (2.2-3.7); Glomerular Filtration Rate 110; Glucose 81 mg/dL (70-105); Lactate Dehydrogenase 276 U/L (135-225); Phosphorous 2.6 mg/dL (2.5-4.5); Triglycerides 68 mg/dL (<150); Uric Acid 3.5 mg/dL (2.5-8.0)
--- NOTE | 2022-05-23 07:28 | EKG ---
[facility] Test Date: 2022-05-21 Pat Name: Mayo Sheridan Department: ED Room: Gender: Male Supervisor Operations: CHRISTIE : 1965 Requested By: Nitin Ku Order Number: [id number] Reading MD: Juventino Vasquez M.D. Measurements Intervals [place] Rate: 137 P: [place]: QRS: 25 QRSD: 106 T: 24 QT: 347 QTc: 524 Interpretive Statements Atrial fibrillation Minimal ST depression, anterolateral leads Electronically Signed On 05-23-2022 7:28:39 PDT by Juventino Vasquez M.D. /store/[email or web address]/[id number]
--- NOTE | 2022-05-23 07:33 | Internal Med Progress Note ---
SUBJECTIVE Subjective Patient information: Note initiated : 05/23/22 at 7:32 am Service Date, if different from initiated Date: [] Patient: Mayo Sheridan 56 y/o M admitted on 05/21/22 for Alcohol withdrawls. Chief Complaint: [] Interval history: History of present illness: Mr. Sehridan is a 56 year old M Patient with history of alcohol abuse and withdrawal presents to the ED concerned about alcohol withdrawal. Patient desires to get drinking. Patient was admitted to [place] [facility] in September 2021 for alcohol withdrawal and A. fib with RVR. He did undergo a cardioversion while there. He was actually admitted at [facility] October 14 and then transferred to [facility] on the and was discharged on the . He was most recently admitted to [facility] on May 05 and was discharged on the for alcohol withdrawal and A. fib as well. Also found to have a heart failure with reduced ejection fraction of 35% on the admit at [facility]. He was discharged on digoxin and amiodarone, his diltiazem was stopped. He was started on a low-dose of lisinopril 2.5 as well as Aldactone and Lasix. At his most recent visit at [facility] I do not see amiodarone or digoxin on his record but I see diltiazem was given. It looks like his spironolactone and furosemide were stopped because of low blo od pressures. He says when he was discharged he did not have anything to drink for 3 days and then he started drinking again, this was about a week ago. Also at the time he stopped taking his medications because he heard from a physician in the past that if you are drinking there is no point taking your medications. This includes Eliquis. He says he has a history of delirium tremens and seizures from withdrawal. And carries a diagnosis of bipolar disorder. He also has a history of rectal cancer and is undergoing chemotherapy with Dr. Borges. Patient did have some sharp chest pain in the middle the night 3 nights ago which lasted for seconds otherwise no chest pain no shortness of breath. Patient started to feel withdrawal symptoms with tremors and nausea. Also complains of headaches. In the ER he was in A. fib RVR was started on a diltiazem bolus and drip with poor response. Patient given a banana bag in the ED, patient temporarily converted to normal sinus rhythm and then went back into A. fib 05/22 Patient's rhythm converted to normal sinus rhythm last night. Still on esmolol drip. We will start metoprolol and wean off the drip. P.o. diazepam and as needed IV Ativan for elevated CIWA. Leukopenia noted. Mild hyponatremia. Transaminitis. Liver ultrasound pending 05/23 Patient in severe withdrawal as needed multiple doses of Ativan. Currently in normal sinus rhythm. Continue monitor closely. Has headache and nausea but no vomiting. Shaking. Review of Systems: denies /fever/chills/vomiting/chest or abdominal pain/cough/dyspnea/diarrhea. Otherwise see above. Constitutional Vitals: Vital Signs Temp Pulse Resp BP Pulse Ox O2 Del Method O2 Flow Rate 97.8 F 58 L 19 113/64 95 1 05/23/22 05:50 05/23/22 06:01 05/23/22 06:01 05/23/22 06:01 05/23/22 06:01 05/23/22 02:06 05/23/22 02:06 Period Temp Pulse Resp BP Sys/Melendez Pulse Ox O2 Del Method O2 Flow Rate Last 24 Hr 96.9 F-98.3 F 58-96 18-26 112-136/61-99 92-99 Nasal Cannula- Room Air 1-1 Intake and Output 05/22/22 05/23/22 05/23/22 21:59 05:59 13:59 Intake Total 531 200 Output Total 600 500 Balance -69 -300 Weight 90.804 kg Intake & Output: Intake & Output 05/22/22 05/23/22 05/23/22 21:59 05:59 13:59 Intake Total 531 200 Output Total 600 500 Balance -69 -300 Weight 90.804 kg Intake: IV 51 Vitamin B1 100 mg In Sodium 51 Chloride 0.9% 50 ml @ 50 mls/hr IV DAILY [facility] Rx#:[id number] Oral 480 200 Output: Void Amount 600 500 Other: Meal Dinner Percent of Meal Consumed 50% Feeding Ability Assist with Tray Set Up Urine Appearance Clear Clear Urine Color Dark Yellow Dark Yellow Urine Odor Normal Exam: General: Alert, Awake, mild restlessness Eyes/N/T: EOMI, Head/Neck: neck supple, CV: RRR, No murmurs, Pulm: Clear b/l, no wheezing/rhonchi/rales Abd: soft, nontender, +BS x4 Ext: no clubbing/cyanosis/edema Neuro: Alert, no focal deficits, moves all extremities, tremoulous Skin: warm/dry OBJ DATA Labs CBC & Chem 7: 05/23/22 05:08 05/23/22 05:08 Labs: Abnormal Lab Results 05/23/22 05/23/22 05/22/22 05:08 05:08 05:18 WBC 3.2 L RBC 3.64 L Hgb 11.6 L Hct 34.3 L MPV 10.9 H Immature Gran % (Auto) 0.6 H Neut % (Auto) 79.0 H Lymph % (Auto) 9.4 L Lymph # (Auto) 0.30 L Sodium 132 L POC Potassium POC BUN BUN 5 L 4 L Creatinine 0.6 L 0.6 L Glucose 67 L Calcium 7.9 L 7.6 L POC WB Ioniz Calcium Direct Bilirubin 0.3 H GGT 90 H 85 H AST 80 H 92 H ALT 47 H 53 H Alkaline Phosphatase Lactate Dehydrogenase 276 H 305 H Total Protein 5.3 L 5.5 L Albumin 2.9 L 3.1 L Ur Barbiturates Screen U Benzodiazepines Scrn Ethyl Alcohol g/dL POC Troponin I 05/22/22 05/21/22 05/21/22 05:18 21:29 08:41 WBC 2.5 L RBC 3.58 L Hgb 11.5 L Hct 33.6 L MPV Immature Gran % (Auto) Neut % (Auto) Lymph % (Auto) Lymph # (Auto) Sodium POC Potassium POC BUN BUN Creatinine Glucose Calcium POC WB Ioniz Calcium Direct Bilirubin GGT AST ALT Alkaline Phosphatase Lactate Dehydrogenase Total Protein Albumin Ur Barbiturates Screen Suspect positive A U Benzodiazepines Scrn Suspect positive A Ethyl Alcohol g/dL POC Troponin I 0 L 05/21/22 05/21/22 05/21/22 08:05 07:51 07:45 WBC RBC Hgb Hct MPV Immature Gran % (Auto) Neut % (Auto) Lymph % (Auto) Lymph # (Auto) Sodium POC Potassium 3.1 L POC BUN 5 L BUN Creatinine Glucose Calcium POC WB Ioniz Calcium 0.91 L Direct Bilirubin GGT AST 108 H ALT 65 H Alkaline Phosphatase 128 H Lactate Dehydrogenase Total Protein Albumin Ur Barbiturates Screen U Benzodiazepines Scrn Ethyl Alcohol g/dL 0.387 H POC Troponin I 05/21/22 07:45 WBC RBC 4.37 L Hgb 13.6 L Hct 39.6 L MPV Immature Gran % (Auto) Neut % (Auto) 80.8 H Lymph % (Auto) 8.7 L Lymph # (Auto) 0.67 L Sodium POC Potassium POC BUN BUN Creatinine Glucose Calcium POC WB Ioniz Calcium Direct Bilirubin GGT AST ALT Alkaline Phosphatase Lactate Dehydrogenase Total Protein Albumin Ur Barbiturates Screen U Benzodiazepines Scrn Ethyl Alcohol g/dL POC Troponin I Meds: Medications Acetaminophen (Acetaminophen 325 Mg Tablet) 650 mg PO Q4-6HP PRN; Protocol PRN Reason: Per Pain Protocol/Fever > 101 Last Admin: 05/23/22 05:26 Dose: 650 mg Albuterol/Ipratropium (Ipratropium/Albuterol 3 Ml Ampul.Neb) 3 ml NEB Q4HRT PRN PRN Reason: dyspnea Diazepam (Diazepam 5 Mg Tablet) 5 mg PO Q2HP PRN PRN Reason: Alcohol Withdrawal/Assess CIWA Last Admin: 05/23/22 05:34 Dose: 5 mg Digoxin (Digoxin 125 Mcg Tablet) 125 mcg PO DAILY@1400 [facility] Last Admin: 05/22/22 13:29 Dose: 125 mcg Docusate Sodium (Docusate Sodium 100 Mg Capsule) 100 mg PO BID [facility] Last Admin: 05/22/22 20:56 Dose: 100 mg Enoxaparin Sodium (Enoxaparin 100 Mg/Ml Syringe) 90 mg SQ BID [facility] Last Admin: 05/22/22 20:56 Dose: 90 mg Famotidine (Famotidine/Pf 20 Mg/2 Ml Vial) 20 mg IV Q12 [facility] Last Admin: 05/22/22 20:56 Dose: 20 mg Folic Acid (Folic Acid 1 Mg Tablet) 1 mg PO DAILY [facility] Last Admin: 05/22/22 09:28 Dose: 1 mg Esmolol HCl 2,500 mg/ Premix 250 mls @ 27.76 mls/hr IV .Q9H1M [facility]; Protocol Last Admin: 05/23/22 05:55 Dose: Not Given Thiamine HCl 100 mg/ Sodium (Chloride) 51 mls @ 50 mls/hr IV DAILY [facility] Last Infusion: 05/22/22 14:32 Dose: Infused Iron Carb/Multivit/[place]/Folic Acid (Multivit,Ther Iron,Ca,Fa & Min 1 Tablet) 1 tab PO DAILY [facility] Last Admin: 05/22/22 09:28 Dose: 1 tab Lamotrigine (Lamotrigine 100 Mg Tablet) 150 mg PO DAILY [facility] Last Admin: 05/22/22 09:28 Dose: 150 mg Lorazepam (Lorazepam 2 Mg/Ml Vial) 0 mg IV Q4HP PRN; Protocol PRN Reason: Alcohol Withdrawal/Assess CIWA Last Admin: 05/23/22 06:18 Dose: 1 mg Metoprolol Tartrate (Metoprolol Tartrate 50 Mg Tablet) 50 mg PO BID [facility] Last Admin: 05/22/22 20:56 Dose: 50 mg Ondansetron HCl (Ondansetron 4 Mg/2 Ml Vial) 4 mg IV Q4-6HP PRN PRN Reason: Nausea And Vomiting Last Admin: 05/23/22 05:15 Dose: 4 mg Sodium Chloride (0.9 % Sodium Chloride 10 Ml Syringe) 10 ml IV Q8 [facility] Last Admin: 05/23/22 05:56 Dose: 10 ml Sodium Chloride (0.9 % Sodium Chloride 10 Ml Syringe) 10 ml IV Q8 [facility] Last Admin: 05/23/22 05:56 Dose: Not Given A/P Narrative A/P Narrative: A: *A. fib RVR: difficult to control in ED, now improved on esmolol gtt, converted to NSR -Was supposed to be on digoxin/amiodarone/Eliquis per notes from [facility] in September *Alcohol abuse with Severe Withdrawal: high risk for DT's & Sz *Hyponatremia/Hypokalemia: improving *h/o systolic(35%) CHF: was supposed to be on lasix/aldactone, lisinopril 2.5 per [facility] notes *Bipolar/depression/anxiety: *Rectal cancer: Undergoing chemotherapy with Dr. Borges *Leukopenia, acute on chronic: *Transaminitis: likely 2/2 etoh , mildly improved -liver u/s with fatty changes P: -esmolol gtt off, digoxin, started metoprolol -Monitor electrolytes closely and replete -CIWA, vitamins, prn benzo -icu -pt/ot -Would likely benefit from naltrexone prescription upon discharge, Follow-up with Dr. Veloz -Follow-up with general surgery for large hiatal hernia -ppx: lovenox bid / ppi full code Time Spent With Patient Time: Total time spent is greater than 50% in coordination of care (as documented) at patient's floor/unit and/or counseling patient: Total time spent with greater than 50% in coordination of care (as documented) at patient's floor/unit and/or counseling patient:: 35 - 50 minutes QUALITY VTE Deep Vein Thrombosis/Pulmonary Embolism Present on Admission: No
--- NOTE | 2022-05-23 07:35 | EKG ---
[facility] Test Date: 2022-05-21 Pat Name: Mayo Sheridan Department: ED Room: Gender: Male Building Cleaner: JOSE : 1965 Requested By: Nitin Ku Order Number: [id number] Reading MD: Juventino Vasquez M.D. Measurements Intervals [place] Rate: 95 P: 54 NV: 190 QRS: -10 QRSD: 100 T: 26 QT: 415 QTc: 522 Interpretive Statements Sinus rhythm Prolonged QT interval Electronically Signed On 05-23-2022 7:35:06 PDT by Juventino Vasquez M.D. /store/[email or web address]/[id number]
--- NOTE | 2022-05-23 07:42 | EKG ---
[facility] Test Date: 2022-05-21 Pat Name: Mayo Sheridan Department: ICU Room: 120C Gender: Male Librarian: : 1965 Requested By: Micheal Parker Order Number: [id number] Reading MD: Juventino Vasquez M.D. Measurements Intervals [place] Rate: 83 P: 59 [place]: 195 QRS: -6 QRSD: 106 T: 33 QT: 422 QTc: 496 Interpretive Statements Sinus rhythm Borderline prolonged QT interval Electronically Signed On 05-23-2022 7:41:49 PDT by Juventino Vasquez M.D. /store/[email or web address]/[id number]
[2022-05-23] MEDS: THIAMINE 100 MG in 0.9 % SODIUM CHLORIDE 50 ML IV SCH (09:16)
[2022-05-23] MEDS: ENOXAPARIN 100 MG/ML SYRINGE SQ SCH (09:22)
[2022-05-23] MEDS: FAMOTIDINE/PF 20 MG/2 ML VIAL IV SCH (09:22)
[2022-05-23] MEDS: DOCUSATE SODIUM 100 MG CAPSULE PO SCH ×2 (09:22→21:14)
[2022-05-23] MEDS: MULTIVIT,THER IRON,CA,FA & MIN 1 TABLET PO SCH (09:22)
[2022-05-23] MEDS: FOLIC ACID 1 MG TABLET PO SCH (09:22)
[2022-05-23] MEDS: lamoTRIgine 100 MG TABLET PO SCH (09:22)
[2022-05-23] MEDS: chlordiazePOXIDE 25 MG CAPSULE PO PRN ×3 (10:39→20:09)
[2022-05-23] MEDS: METOPROLOL TARTRATE 25 MG TABLET PO SCH ×3 (12:17→21:17)
[2022-05-23] MEDS: DIAZEPAM 10 MG/2 ML SYRINGE IV PRN (12:31)
[2022-05-23] MEDS: DIGOXIN 125 MCG TABLET PO SCH (15:26)
[2022-05-23] MEDS: APIXABAN 5 MG TABLET PO SCH (21:14)
[2022-05-24] MEDS: chlordiazePOXIDE 25 MG CAPSULE PO PRN ×6 (00:16→21:39)
[2022-05-24] MEDS: DIAZEPAM 10 MG/2 ML SYRINGE IV PRN ×7 (02:16→19:55)
[2022-05-24] MEDS: DIAZEPAM 5 MG TABLET PO PRN ×2 (04:40→23:31)
[2022-05-24 06:20] LABS: Basophils # (Auto) 0.01 K/mcL (0.00-0.30); Basophils % (Auto) 0.3 % (0.0-2.0); Eosinophils # (Auto) 0.07 K/mcL (0.00-0.70); Eosinophils % (Auto) 2.1 % (0.0-7.0); Hematocrit 34.5 % (40.1-51.0); Hemoglobin 11.7 g/dL (13.7-17.5); Lymphocytes # (Auto) 0.33 K/mcL (1.50-4.80); Lymphocytes % (Auto) 10.1 % (15.5-49.0); Mean Corpuscular HGB Conc 33.9 g/dL (31.0-36.0); Mean Platelet Volume 10.6 fL (7.4-10.4); Monocytes # (Auto) 0.32 K/mcL (0.10-0.90); Monocytes % (Auto) 9.8 % (1.0-12.0); Neutrophils % (Auto) 77.1 % (38.0-78.0); Platelet Count 172 K/mcL (140-440); RBC 3.71 M/mcL (4.63-6.08); Red Cell Distribution Width 13.4 % (11.5-14.5); WBC 3.3 K/mcL (4.5-11.0)
[2022-05-24] MEDS: 0.9 % SODIUM CHLORIDE 10 ML SYRINGE IV SCH ×3 (06:30→20:10)
[2022-05-24 06:44] LABS: ALT/SGPT 44 U/L (<40); AST/SGOT 63 U/L (<40); Albumin 3.1 gm/dL (3.2-5.2); Albumin/Globulin Ratio 1.2 (1.0-2.3); Alkaline Phosphatase 115 U/L (39-117); Bilirubin,Total 0.4 mg/dL (0.1-1.0); Blood Urea Nitrogen 7 mg/dL (6-20); Calcium 8.3 mg/dL (8.6-10.4); Carbon Dioxide 27 mmol/L (22-30); Chloride 98 mmol/L (96-108); Globulin 2.6 gm/dL (2.2-3.7); Glomerular Filtration Rate 110; Glucose 83 mg/dL (70-105)
[2022-05-24] MEDS: METOPROLOL TARTRATE 25 MG TABLET PO SCH ×2 (07:28→19:56)
[2022-05-24] MEDS: PANTOPRAZOLE 40 MG PACKET PO SCH (07:31)
[2022-05-24] MEDS: SPIRONOLACTONE 25 MG TABLET PO SCH (07:47)
[2022-05-24] MEDS: FOLIC ACID 1 MG TABLET PO SCH (07:47)
[2022-05-24] MEDS: APIXABAN 5 MG TABLET PO SCH ×2 (07:47→19:56)
[2022-05-24] MEDS: DOCUSATE SODIUM 100 MG CAPSULE PO SCH ×2 (07:47→19:56)
[2022-05-24] MEDS: lamoTRIgine 100 MG TABLET PO SCH (07:47)
[2022-05-24] MEDS: MULTIVIT,THER IRON,CA,FA & MIN 1 TABLET PO SCH (07:47)
[2022-05-24] MEDS: FUROSEMIDE 20 MG TABLET PO SCH (07:47)
[2022-05-24] MEDS: LISINOPRIL 2.5 MG TABLET PO SCH (07:47)
[2022-05-24] MEDS ORDERED: DIAZEPAM 10 MG/2 ML SYRINGE IV PRN (08:17)
--- NOTE | 2022-05-24 08:58 | Internal Med Progress Note ---
SUBJECTIVE Subjective Patient information: Note initiated : 05/24/22 at 8:53 am Service Date, if different from initiated Date: [] Patient: Mayo Sheridan 56 y/o M admitted on 05/21/22 for Alcohol withdrawls. Chief Complaint: [] Interval history: Patient with history of alcohol abuse and withdrawal presents to the ED concerned about alcohol withdrawal. Patient desires to get drinking. Patient was admitted to [place] in September 2021 for alcohol withdrawal and A. fib with RVR. He did undergo a cardioversion while there. He was actually a dmitted at [facility] October 14 and then transferred to [facility] on the and was discharged on the . He was most recently admitted to [facility] on May 05 and was discharged on the for alcohol withdrawal and A. fib as well. Also found to have a heart failure with reduced ejection fraction of 35% on the admit at [place]. He was discharged on digoxin and amiodarone, his diltiazem was stopped. He was started on a low-dose of lisinopril 2.5 as well as Aldactone and Lasix. At his most recent visit at [facility] I do not see amiodarone or digoxin on his record but I see diltiazem was given. It looks like his spironolactone and furosemide were stopped because of low blood pressures. He says when he was discharged he did not have anything to drink for 3 days and then he started drinking again, this was about a week ago. Also at the time he stopped taking his medications because he heard from a physician in the past that if you are drinking there is no point taking your medications. This includes Eliquis. He says he has a history of delirium tremens and seizures from withdrawal. And carries a diagnosis of bipolar disorder. He also has a history of rectal cancer and is undergoing chemotherapy with Dr. Borges. Patient did have some sharp chest pain in the middle the night 3 nights ago which lasted for seconds otherwise no chest pain no shortness of breath. Patient started to feel withdrawal symptoms with tremors and nausea. Also complains of headaches. In the ER he was in A. fib RVR was started on a diltiazem bolus and drip with poor response. Patient given a banana bag in the ED, patient temporarily converted to normal sinus rhythm and then went back into A. fib 05/22 Patient's rhythm converted to normal sinus rhythm last night. Still on esmolol drip. We will start metoprolol and wean off the drip. P.o. diazepam and as needed IV Ativan for elevated CIWA. Leukopenia noted. Mild hyponatremia. Transaminitis. Liver ultrasound pending 05/23 Patient in severe withdrawal as needed multiple doses of Ativan. Currently in normal sinus rhythm. Continue monitor closely. Has headache and nausea but no vomiting. Shaking. 05/24: Transferred from ICU to PCU yesterday evening. CIWA score 16 this morning. c/o insomnia. c/o increased hands tremors. c/o nausea denies vomiting. c/o anxiety and agitation. Denies hallucinations. Continue CIWA protocol with Valium. Pending PT OT evaluations. Pending healthcare social worker to coordinate alcohol rehab placement. Constitutional Vitals: Vital Signs Temp Pulse Resp BP Pulse Ox O2 Del Method O2 Flow Rate 35.8 C L 36 L 20 121/63 93 0 05/24/22 08:01 05/24/22 06:33 05/24/22 08:01 05/24/22 08:01 05/24/22 08:01 05/24/22 00:15 05/24/22 06:01 Period Temp Pulse Resp BP Sys/Melendez Pulse Ox O2 Del Method O2 Flow Rate Last 24 Hr 35.8 C-36.4 C 35-80 8-29 102-133/59-89 92-98 Room Air-Room Air 0-0 Intake and Output 05/23/22 05/24/22 05/24/22 21:59 05:59 13:59 Intake Total 450 250 Output Total 300 175 0 Balance 150 75 0 Weight 89.086 kg Intake & Output: Intake & Output 05/23/22 05/24/22 05/24/22 21:59 05:59 13:59 Intake Total 450 250 Output Total 300 175 0 Balance 150 75 0 Weight 89.086 kg Intake: Oral 450 250 Output: Void Amount 300 175 0 Other: Meal Dinner Percent of Meal Consumed 100% Feeding Ability Independent Urine Appearance Clear Urine Color Dark Yellow # Bowel Movements 0 General appearance: average body habitus, disheveled and no acute distress Head Head exam: Present atraumatic and normal inspection Eye Eye exam: Present normal appearance ENT ENT exam: Present mucous membranes moist, normal exam and normal external ear exam Neck Neck exam: Present normal inspection Respiratory Respiratory exam: Present normal respiratory exam Cardiovascular Cardiovascular exam: Present irregular rhythm GI/Abdominal GI/Abdominal exam: Present normal bowel sounds Back Exam Back exam: Present normal inspection Neurological Exam Neurological exam: Present alert and oriented X3 Additional comments: Increased hand tremors Skin Skin exam: Present intact and warm OBJ DATA Labs CBC & Chem 7: 05/24/22 05:50 05/24/22 05:50 Labs: Abnormal Lab Results 05/24/22 05/24/22 05/23/22 05:50 05:50 05:08 WBC 3.3 L RBC 3.71 L Hgb 11.7 L Hct 34.5 L MPV 10.6 H Immature Gran % (Auto) 0.6 H Neut % (Auto) Lymph % (Auto) 10.1 L Lymph # (Auto) 0.33 L Sodium BUN 5 L Creatinine 0.6 L 0.6 L Glucose Calcium 8.3 L 7.9 L Direct Bilirubin GGT 90 H AST 63 H 80 H ALT 44 H 47 H Alkaline Phosphatase Lactate Dehydrogenase 276 H Total Protein 5.7 L 5.3 L Albumin 3.1 L 2.9 L Ur Barbiturates Screen U Benzodiazepines Scrn POC Troponin I 05/23/22 05/22/22 05/22/22 05:08 05:18 05:18 WBC 3.2 L 2.5 L RBC 3.64 L 3.58 L Hgb 11.6 L 11.5 L Hct 34.3 L 33.6 L MPV 10.9 H Immature Gran % (Auto) 0.6 H Neut % (Auto) 79.0 H Lymph % (Auto) 9.4 L Lymph # (Auto) 0.30 L Sodium 132 L BUN 4 L Creatinine 0.6 L Glucose 67 L Calcium 7.6 L Direct Bilirubin 0.3 H GGT 85 H AST 92 H ALT 53 H Alkaline Phosphatase Lactate Dehydrogenase 305 H Total Protein 5.5 L Albumin 3.1 L Ur Barbiturates Screen U Benzodiazepines Scrn POC Troponin I 05/21/22 05/21/22 05/21/22 21:29 08:41 07:45 WBC RBC Hgb Hct MPV Immature Gran % (Auto) Neut % (Auto) Lymph % (Auto) Lymph # (Auto) Sodium BUN Creatinine Glucose Calcium Direct Bilirubin GGT AST 108 H ALT 65 H Alkaline Phosphatase 128 H Lactate Dehydrogenase Total Protein Albumin Ur Barbiturates Screen Suspect positive A U Benzodiazepines Scrn Suspect positive A POC Troponin I 0 L Meds: Medications Acetaminophen (Acetaminophen 325 Mg Tablet) 650 mg PO Q4-6HP PRN; Protocol PRN Reason: Per Pain Protocol/Fever > 101 Last Admin: 05/23/22 19:31 Dose: 650 mg Albuterol/Ipratropium (Ipratropium/Albuterol 3 Ml Ampul.Neb) 3 ml NEB Q4HRT PRN PRN Reason: dyspnea Apixaban (Apixaban 5 Mg Tablet) 5 mg PO BID [facility] Last Admin: 05/24/22 07:47 Dose: 5 mg Chlordiazepoxide HCl (Chlordiazepoxide 25 Mg Capsule) 25 mg PO Q4HP PRN PRN Reason: Alcohol Withdrawal/Assess CIWA Last Admin: 05/24/22 03:33 Dose: 25 mg Diazepam (Diazepam 5 Mg Tablet) 5 mg PO Q2HP PRN PRN Reason: Alcohol Withdrawal/Assess CIWA Last Admin: 05/24/22 04:40 Dose: 5 mg Diazepam (Diazepam 10 Mg/2 Ml Syringe) 5 - 10 mg IV Q1-2HP PRN PRN Reason: CIWA Digoxin (Digoxin 125 Mcg Tablet) 125 mcg PO DAILY@1400 [facility] Last Admin: 05/23/22 15:26 Dose: 125 mcg Docusate Sodium (Docusate Sodium 100 Mg Capsule) 100 mg PO BID [facility] Last Admin: 05/24/22 07:47 Dose: 100 mg Folic Acid (Folic Acid 1 Mg Tablet) 1 mg PO DAILY [facility] Last Admin: 05/24/22 07:47 Dose: 1 mg Furosemide (Furosemide 20 Mg Tablet) 20 mg PO DAILY [facility] Last Admin: 05/24/22 07:47 Dose: 20 mg Heparin Sodium (Porcine) (Heparin Flush 10 Units/Ml 5 Ml Syringe) 5 ml IV Q12 [facility] Last Admin: 05/24/22 07:48 Dose: 5 ml Heparin Sodium (Porcine) (Heparin Flush 10 Units/Ml 5 Ml Syringe) 2 ml IV UD [facility] Thiamine HCl 100 mg/ Sodium (Chloride) 51 mls @ 50 mls/hr IV DAILY [facility] Last Infusion: 05/23/22 10:45 Dose: Infused Iron Carb/Multivit/[place]/Folic Acid (Multivit,Ther Iron,Ca,Fa & Min 1 Tablet) 1 tab PO DAILY [facility] Last Admin: 05/24/22 07:47 Dose: 1 tab Lamotrigine (Lamotrigine 100 Mg Tablet) 150 mg PO DAILY [facility] Last Admin: 05/24/22 07:47 Dose: 150 mg Lisinopril (Lisinopril 2.5 Mg Tablet) 2.5 mg PO DAILY [facility] Last Admin: 05/24/22 07:47 Dose: 2.5 mg Lorazepam (Lorazepam 2 Mg/Ml Vial) 0 mg IV Q4HP PRN; Protocol PRN Reason: Alcohol Withdrawal/Assess CIWA Last Admin: 05/23/22 19:03 Dose: 2 mg Metoprolol Tartrate (Metoprolol Tartrate 25 Mg Tablet) 25 mg PO BID [facility] Last Admin: 05/24/22 07:28 Dose: 25 mg Ondansetron HCl (Ondansetron 4 Mg/2 Ml Vial) 4 mg IV Q4-6HP PRN PRN Reason: Nausea And Vomiting Last Admin: 05/23/22 05:15 Dose: 4 mg Pantoprazole Sodium (Pantoprazole 40 Mg Packet) 40 mg PO QAMAC [facility] Last Admin: 05/24/22 07:31 Dose: 40 mg Sodium Chloride (0.9 % Sodium Chloride 10 Ml Syringe) 10 ml IV Q8 [facility] Last Admin: 05/24/22 06:30 Dose: 10 ml Spironolactone (Spironolactone 25 Mg Tablet) 25 mg PO DAILY [facility] Last Admin: 05/24/22 07:47 Dose: 25 mg A/P Assessment and plan (1) Atrial fibrillation: Status: Acute (2) Delirium tremens: Status: Acute (3) Systolic CHF, chronic: Status: Acute (4) Bipolar disorder: Status: Acute (5) Rectal carcinoma: Status: Acute Narrative A/P Narrative: Assessment and Plans: 1. Delirium Tremens: Inpatient PCU [facility] protocol with [employer] product development manager for alcohol rehab replacement coordination Physical therapy Occupational therapy 2. Chronic atrial fibrillation: Esmolol drip stopped for more than 24 hours Metoprolol tartrate Digoxin Eliquis 3. Chronic systolic CHF: Metoprolol tartrate Lasix Lisinopril Aldactone 4. h/o Rectal carcinoma: Need outpatient follow up with oncology 5. Bipolar with depression and anxiety: Lamotrigine Librium Valium GI ppx: Protonix PO DVT ppx: Eliquis Code status: Full Prognosis: guarded Disposition: inpatient PCU; PT OT Time Spent With Patient Time: Total time spent is greater than 50% in coordination of care (as documented) at patient's floor/unit and/or counseling patient: Total time spent with greater than 50% in coordination of care (as documented) at patient's floor/unit and/or counseling patient:: 50 - 70 minutes QUALITY VTE Deep Vein Thrombosis/Pulmonary Embolism Present on Admission: No
[2022-05-24] MEDS: THIAMINE 100 MG in 0.9 % SODIUM CHLORIDE 50 ML IV SCH (09:16)
[2022-05-24] MEDS: DIGOXIN 125 MCG TABLET PO SCH (13:30)
[2022-05-24] MEDS ORDERED: POTASSIUM CHLORIDE 20 MEQ TABLET PO ONE (18:14)
[2022-05-24] MEDS: ACETAMINOPHEN 325 MG TABLET PO PRN (18:25)
[2022-05-24] MEDS: ONDANSETRON 4 MG/2 ML VIAL IV PRN (19:58)
[2022-05-24] MEDS: 0.9 % SODIUM CHLORIDE 10 ML SYRINGE IV PRN ×2 (20:00→20:05)
[2022-05-25] MEDS: DIAZEPAM 10 MG/2 ML SYRINGE IV PRN (02:35)
[2022-05-25] MEDS: 0.9 % SODIUM CHLORIDE 10 ML SYRINGE IV PRN ×3 (02:36→20:16)
[2022-05-25] MEDS: 0.9 % SODIUM CHLORIDE 10 ML SYRINGE IV SCH ×3 (05:46→20:37)
[2022-05-25 07:35] LABS: Basophils # (Auto) 0.02 K/mcL (0.00-0.30); Basophils % (Auto) 0.5 % (0.0-2.0); Eosinophils # (Auto) 0.06 K/mcL (0.00-0.70); Eosinophils % (Auto) 1.6 % (0.0-7.0); Hematocrit 34.6 % (40.1-51.0); Hemoglobin 11.5 g/dL (13.7-17.5); Lymphocytes # (Auto) 0.36 K/mcL (1.50-4.80); Lymphocytes % (Auto) 9.9 % (15.5-49.0); Mean Cell Volume 94.5 fL (80.0-100.0); Mean Corpuscular HGB Conc 33.2 g/dL (31.0-36.0); Mean Platelet Volume 11.1 fL (7.4-10.4); Monocytes # (Auto) 0.48 K/mcL (0.10-0.90); Monocytes % (Auto) 13.2 % (1.0-12.0); Platelet Count 165 K/mcL (140-440); RBC 3.66 M/mcL (4.63-6.08); Red Cell Distribution Width 13.8 % (11.5-14.5); WBC 3.6 K/mcL (4.5-11.0)
[2022-05-25] MEDS: PANTOPRAZOLE 40 MG PACKET PO SCH (08:04)
[2022-05-25 08:05] LABS: ALT/SGPT 43 U/L (<40); AST/SGOT 51 U/L (<40); Albumin 3.2 gm/dL (3.2-5.2); Albumin/Globulin Ratio 1.2 (1.0-2.3); Alkaline Phosphatase 116 U/L (39-117); Bilirubin,Total 0.3 mg/dL (0.1-1.0); Blood Urea Nitrogen 10 mg/dL (6-20); Calcium 8.5 mg/dL (8.6-10.4); Carbon Dioxide 26 mmol/L (22-30); Chloride 99 mmol/L (96-108); Globulin 2.6 gm/dL (2.2-3.7); Glomerular Filtration Rate 110; Glucose 86 mg/dL (70-105)
[2022-05-25 08:06] LABS: Digoxin 0.7 ng/mL
[2022-05-25] MEDS: DOCUSATE SODIUM 100 MG CAPSULE PO SCH ×2 (08:08→20:37)
[2022-05-25] MEDS: APIXABAN 5 MG TABLET PO SCH ×2 (08:08→20:15)
[2022-05-25] MEDS: SPIRONOLACTONE 25 MG TABLET PO SCH (08:08)
[2022-05-25] MEDS: FUROSEMIDE 20 MG TABLET PO SCH (08:09)
[2022-05-25] MEDS: METOPROLOL TARTRATE 25 MG TABLET PO SCH ×2 (08:09→20:15)
[2022-05-25] MEDS: lamoTRIgine 100 MG TABLET PO SCH (08:09)
[2022-05-25] MEDS: FOLIC ACID 1 MG TABLET PO SCH (08:09)
[2022-05-25] MEDS: MULTIVIT,THER IRON,CA,FA & MIN 1 TABLET PO SCH (08:10)
[2022-05-25] MEDS: LISINOPRIL 2.5 MG TABLET PO SCH (08:10)
[2022-05-25] MEDS: THIAMINE 100 MG in 0.9 % SODIUM CHLORIDE 50 ML IV SCH (08:32)
[2022-05-25] MEDS: chlordiazePOXIDE 25 MG CAPSULE PO PRN ×3 (08:32→23:56)
[2022-05-25] MEDS: ACETAMINOPHEN 325 MG TABLET PO PRN (08:32)
[2022-05-25] MEDS: DIAZEPAM 5 MG TABLET PO PRN (08:32)
--- NOTE | 2022-05-25 10:52 | Internal Med Progress Note ---
SUBJECTIVE Subjective Patient information: Note initiated : 05/25/22 at 10:50 am Service Date, if different from initiated Date: [] Patient: Mayo Sheridan 56 y/o M admitted on 05/21/22 for Alcohol withdrawls. Chief Complaint: [] Interval history: Patient with history of alcohol abuse and withdrawal presents to the ED concerned about alcohol withdrawal. Patient desires to get drinking. Patient was admitted to [place] in September 2021 for alcohol withdrawal and A. fib with RVR. He did undergo a cardioversion while there. He was actually admitted at [facility] October 14 and then transferred to [facility] on the and was discharged on the . He was most recently admitted to [facility] on May 05 and was discharged on the for alcohol withdrawal and A. fib as well. Also found to have a heart failure with reduced ejection fraction of 35% on the admit at [place]. He was discharged on digoxin and amiodarone, his diltiazem was stopped. He was started on a low-dose of lisinopril 2.5 as well as Aldactone and Lasix. At his most recent visit at [facility] I do not see amiodarone or digoxin on his record but I see diltiazem was given. It looks like his spironolactone and furosemide were stopped because of low blood pressures. He says when he was discharged he did not have anything to drink for 3 days and then he started drinking again, this was about a week ago. Also at the time he stopped taking his medications because he heard from a physician in the past that if you are drinking there is no point taking your medications. This includes Eliquis. He says he has a history of delirium tremens and seizures from withdrawal. And carries a diagnosis of bipolar disorder. He also has a history of rectal cancer and is undergoing chemotherapy with Dr. Borges. Patient did have some sharp chest pain in the middle the night 3 nights ago which lasted for seconds otherwise no chest pain no shortness of breath. Patient started to feel withdrawal symptoms with tremors and nausea. Also complains of headaches. In the ER he was in A. fib RVR was started on a diltiazem bolus and drip with poor response. Patient given a banana bag in the ED, patient temporarily converted to normal sinus rhythm and then went back into A. fib 05/22 Patient's rhythm converted to normal sinus rhythm last night. Still on esmolol drip. We will start metoprolol and wean off the drip. P.o. diazepam and as needed IV Ativan for elevated CIWA. Leukopenia noted. Mild hyponatremia. Transaminitis. Liver ultrasound pending 05/23 Patient in severe withdrawal as needed multiple doses of Ativan. Currently in normal sinus rhythm. Continue monitor closely. Has headache and nausea but no vomiting. Shaking. 05/24: Transferred from ICU to PCU yesterday evening. CIWA score 16 this morning. c/o insomnia. c/o increased hands tremors. c/o nausea denies vomiting. c/o anxiety and agitation. Denies hallucinations. Continue CIWA protocol with Valium. Pending PT OT evaluations. Pending social work supervisor to coordinate alcohol rehab placement. 05/25: CIWA score of 10 this morning. c/o increased hands tremors. c/o nausea denies vomiting. c/o anxiety denies agitation. Denies hallucinations. Denies insomnia. Continue CIWA protocol with Valium. Pending PT OT evaluations. Pending social work supervisor to coordinate alcohol rehab placement. Downgrade from PCU to [facility] telemetry. Constitutional Vitals: Vital Signs Temp Pulse Resp BP Pulse Ox O2 Del Method O2 Flow Rate 36.4 C 59 L 25 H 91/55 94 0 05/25/22 08:00 05/25/22 10:01 05/25/22 10:01 05/25/22 10:01 05/25/22 10:01 05/24/22 18:35 05/25/22 06:00 Period Temp Pulse Resp BP Sys/Melendez Pulse Ox O2 Del Method O2 Flow Rate Last 24 Hr 36.2 C-36.9 C 52-70 5-25 90-127/55-83 93-100 Room Air-Room Air 0-0 Intake and Output 05/24/22 05/25/22 05/25/22 21:59 05:59 13:59 Intake Total 360 480 531 Output Total 450 200 150 Balance -90 280 381 Weight 88.587 kg Intake & Output: Intake & Output 05/24/22 05/25/22 05/25/22 21:59 05:59 13:59 Intake Total 360 480 531 Output Total 450 200 150 Balance -90 280 381 Weight 88.587 kg Intake: IV 51 Vitamin B1 100 mg In Sodium 51 Chloride 0.9% 50 ml @ 50 mls/hr IV DAILY [facility] Rx#:[id number] Oral 360 480 480 Output: Void Amount 450 200 150 Other: Meal Yoghurt Eggsalad with crackers Breakfast Percent of Meal Consumed 100% 100% 100% Feeding Ability Independent Independent Independent Urine Appearance Clear Clear Urine Color Bright Yellow Bright Yellow Urine Odor Normal Stool Size Smear Moderate Stool Color Brown Brown Stool Consistency Loose Soft Head Head exam: Present atraumatic and normal inspection Eye Eye exam: Present normal appearance ENT ENT exam: Present mucous membranes moist, normal exam and normal external ear exam Neck Neck exam: Present normal inspection Respiratory Respiratory exam: Present normal respiratory exam Cardiovascular Cardiovascular exam: Present irregular rhythm GI/Abdominal GI/Abdominal exam: Present normal bowel sounds Back Exam Back exam: Present normal inspection Neurological Exam Neurological exam: Present alert and oriented X3 Skin Skin exam: Present intact and warm OBJ DATA Labs CBC & Chem 7: 05/25/22 05:37 05/25/22 05:37 Labs: Abnormal Lab Results 05/25/22 05/25/22 05/24/22 05:37 05:37 05:50 WBC 3.6 L RBC 3.66 L Hgb 11.5 L Hct 34.6 L MPV 11.1 H Immature Gran % (Auto) 0.8 H Neut % (Auto) Lymph % (Auto) 9.9 L [place] % (Auto) 13.2 H Lymph # (Auto) 0.36 L BUN Creatinine 0.6 L 0.6 L Calcium 8.5 L 8.3 L GGT AST 51 H 63 H ALT 43 H 44 H Lactate Dehydrogenase Total Protein 5.8 L 5.7 L Albumin 3.1 L 05/24/22 05/23/22 05/23/22 05:50 05:08 05:08 WBC 3.3 L 3.2 L RBC 3.71 L 3.64 L Hgb 11.7 L 11.6 L Hct 34.5 L 34.3 L MPV 10.6 H 10.9 H Immature Gran % (Auto) 0.6 H 0.6 H Neut % (Auto) 79.0 H Lymph % (Auto) 10.1 L 9.4 L [place] % (Auto) Lymph # (Auto) 0.33 L 0.30 L BUN 5 L Creatinine 0.6 L Calcium 7.9 L GGT 90 H AST 80 H ALT 47 H Lactate Dehydrogenase 276 H Total Protein 5.3 L Albumin 2.9 L Meds: Medications Acetaminophen (Acetaminophen 325 Mg Tablet) 650 mg PO Q4-6HP PRN; Protocol PRN Reason: Per Pain Protocol/Fever > 101 Last Admin: 05/25/22 08:32 Dose: 650 mg Albuterol/Ipratropium (Ipratropium/Albuterol 3 Ml Ampul.Neb) 3 ml NEB Q4HRT PRN PRN Reason: dyspnea Apixaban (Apixaban 5 Mg Tablet) 5 mg PO BID [facility] Last Admin: 05/25/22 08:08 Dose: 5 mg Chlordiazepoxide HCl (Chlordiazepoxide 25 Mg Capsule) 25 mg PO Q4HP PRN PRN Reason: Alcohol Withdrawal/Assess CIWA Last Admin: 05/25/22 08:32 Dose: 25 mg Diazepam (Diazepam 5 Mg Tablet) 5 mg PO Q2HP PRN PRN Reason: Alcohol Withdrawal/Assess CIWA Last Admin: 05/25/22 08:32 Dose: 5 mg Diazepam (Diazepam 10 Mg/2 Ml Syringe) 5 - 10 mg IV Q1-2HP PRN PRN Reason: CIWA Last Admin: 05/25/22 02:35 Dose: 5 mg Digoxin (Digoxin 125 Mcg Tablet) 125 mcg PO DAILY@1400 [facility] Last Admin: 05/24/22 13:30 Dose: 125 mcg Docusate Sodium (Docusate Sodium 100 Mg Capsule) 100 mg PO BID [facility] Last Admin: 05/25/22 08:08 Dose: 100 mg Folic Acid (Folic Acid 1 Mg Tablet) 1 mg PO DAILY [facility] Last Admin: 05/25/22 08:09 Dose: 1 mg Furosemide (Furosemide 20 Mg Tablet) 20 mg PO DAILY [facility] Last Admin: 05/25/22 08:09 Dose: 20 mg Heparin Sodium (Porcine) (Heparin Flush 10 Units/Ml 5 Ml Syringe) 5 ml IV Q12 [facility] Last Admin: 05/25/22 08:09 Dose: 5 ml Heparin Sodium (Porcine) (Heparin Flush 10 Units/Ml 5 Ml Syringe) 2 ml IV UD [facility] Thiamine HCl 100 mg/ Sodium (Chloride) 51 mls @ 50 mls/hr IV DAILY [facility] Last Infusion: 05/25/22 09:34 Dose: Infused Iron Carb/Multivit/[place]/Folic Acid (Multivit,Ther Iron,Ca,Fa & Min 1 Tablet) 1 tab PO DAILY [facility] Last Admin: 05/25/22 08:10 Dose: 1 tab Lamotrigine (Lamotrigine 100 Mg Tablet) 150 mg PO DAILY [facility] Last Admin: 05/25/22 08:09 Dose: 150 mg Lisinopril (Lisinopril 2.5 Mg Tablet) 2.5 mg PO DAILY [facility] Last Admin: 05/25/22 08:10 Dose: 2.5 mg Metoprolol Tartrate (Metoprolol Tartrate 25 Mg Tablet) 25 mg PO BID [facility] Last Admin: 05/25/22 08:09 Dose: 25 mg Ondansetron HCl (Ondansetron 4 Mg/2 Ml Vial) 4 mg IV Q4-6HP PRN PRN Reason: Nausea And Vomiting Last Admin: 05/24/22 19:58 Dose: 4 mg Pantoprazole Sodium (Pantoprazole 40 Mg Packet) 40 mg PO QAMAC [facility] Last Admin: 05/25/22 08:04 Dose: 40 mg Sodium Chloride (0.9 % Sodium Chloride 10 Ml Syringe) 10 ml IV Q8 [facility] Last Admin: 05/25/22 05:46 Dose: Not Given Sodium Chloride (0.9 % Sodium Chloride 10 Ml Syringe) 10 ml IV UD PRN PRN Reason: FLUSH Last Admin: 05/25/22 05:35 Dose: 10 ml Spironolactone (Spironolactone 25 Mg Tablet) 25 mg PO DAILY [facility] Last Admin: 05/25/22 08:08 Dose: 25 mg A/P Assessment and plan (1) Atrial fibrillation: Status: Acute (2) Delirium tremens: Status: Acute (3) Systolic CHF, chronic: Status: Acute (4) Bipolar disorder: Status: Acute (5) Rectal carcinoma: Status: Acute Narrative A/P Narrative: Assessment and Plans: 1. Delirium Tremens: Inpatient med surg telemetry CIMN protocol with [employer] health practice manager for alcohol rehab replacement coordination Physical therapy Occupational therapy 2. Chronic atrial fibrillation: Metoprolol tartrate Digoxin Eliquis 3. Chronic systolic CHF: Metoprolol tartrate Lasix Lisinopril Aldactone 4. h/o Rectal carcinoma: Need outpatient follow up with oncology 5. Bipolar with depression and anxiety: Lamotrigine Librium Valium GI ppx: Protonix PO DVT ppx: Eliquis Code status: Full Prognosis: guarded Disposition: inpatient med surg telemetry; PT OT Time Spent With Patient Time: Total time spent is greater than 50% in coordination of care (as documented) at patient's floor/unit and/or counseling patient: Total time spent with greater than 50% in coordination of care (as documented) at patient's floor/unit and/or counseling patient:: 35 - 50 minutes QUALITY VTE Deep Vein Thrombosis/Pulmonary Embolism Present on Admission: No
[2022-05-25] MEDS: DIGOXIN 125 MCG TABLET PO SCH (14:05)
[2022-05-25] MEDS: POTASSIUM CHLORIDE 20 MEQ TABLET PO SCH (17:28)
[2022-05-25] MEDS ORDERED: traZODone HCL 100 MG TABLET PO PRN (18:31)
[2022-05-25] MEDS: MAGNESIUM OXIDE 400 MG TABLET PO SCH (20:15)
[2022-05-25] MEDS ORDERED: CARBIDOPA/LEVODOPA CR 25/100 TABLET PO SCH (21:00)
[2022-05-26] MEDS: 0.9 % SODIUM CHLORIDE 10 ML SYRINGE IV SCH ×2 (04:48→14:00)
[2022-05-26] MEDS: 0.9 % SODIUM CHLORIDE 10 ML SYRINGE IV PRN (05:20)
[2022-05-26 06:52] LABS: Basophils # (Auto) 0.02 K/mcL (0.00-0.30); Basophils % (Auto) 0.6 % (0.0-2.0); Eosinophils # (Auto) 0.08 K/mcL (0.00-0.70); Eosinophils % (Auto) 2.2 % (0.0-7.0); Hematocrit 34.9 % (40.1-51.0); Hemoglobin 11.4 g/dL (13.7-17.5); Lymphocytes % (Auto) 11.2 % (15.5-49.0); Mean Cell Volume 95.9 fL (80.0-100.0); Mean Corpuscular HGB Conc 32.7 g/dL (31.0-36.0); Mean Platelet Volume 10.9 fL (7.4-10.4); Monocytes # (Auto) 0.53 K/mcL (0.10-0.90); Monocytes % (Auto) 14.8 % (1.0-12.0); Neutrophils % (Auto) 70.6 % (38.0-78.0); Platelet Count 174 K/mcL (140-440); RBC 3.64 M/mcL (4.63-6.08); WBC 3.6 K/mcL (4.5-11.0)
[2022-05-26 07:17] LABS: ALT/SGPT 8 U/L (<40); AST/SGOT 50 U/L (<40); Albumin 3.2 gm/dL (3.2-5.2); Albumin/Globulin Ratio 1.2 (1.0-2.3); Alkaline Phosphatase 110 U/L (39-117); Bilirubin,Total 0.3 mg/dL (0.1-1.0); Blood Urea Nitrogen 10 mg/dL (6-20); Calcium 8.6 mg/dL (8.6-10.4); Carbon Dioxide 27 mmol/L (22-30); Chloride 99 mmol/L (96-108); Globulin 2.6 gm/dL (2.2-3.7); Glomerular Filtration Rate 110; Glucose 84 mg/dL (70-105)
[2022-05-26] MEDS: PANTOPRAZOLE 40 MG PACKET PO SCH (08:40)
[2022-05-26] MEDS: FOLIC ACID 1 MG TABLET PO SCH (08:40)
[2022-05-26] MEDS: MULTIVIT,THER IRON,CA,FA & MIN 1 TABLET PO SCH (08:40)
[2022-05-26] MEDS: APIXABAN 5 MG TABLET PO SCH (08:40)
[2022-05-26] MEDS: POTASSIUM CHLORIDE 20 MEQ TABLET PO SCH (08:40)
[2022-05-26] MEDS: FUROSEMIDE 20 MG TABLET PO SCH (08:40)
[2022-05-26] MEDS: lamoTRIgine 100 MG TABLET PO SCH (08:40)
[2022-05-26] MEDS: MAGNESIUM OXIDE 400 MG TABLET PO SCH (08:40)
[2022-05-26] MEDS: LISINOPRIL 2.5 MG TABLET PO SCH (08:40)
[2022-05-26] MEDS: SPIRONOLACTONE 25 MG TABLET PO SCH (08:40)
[2022-05-26] MEDS: DOCUSATE SODIUM 100 MG CAPSULE PO SCH (08:41)
[2022-05-26] MEDS: METOPROLOL TARTRATE 25 MG TABLET PO SCH (08:55)
[2022-05-26] MEDS ORDERED: THIAMINE 100 MG TABLET PO SCH (09:00)
[2022-05-26] MEDS ORDERED: METOPROLOL TARTRATE 25 MG TABLET PO SCH ×2 (09:30→21:00)
--- NOTE | 2022-05-26 13:25 | Discharge Summary ---
Discharge Provider Provider IMPORTANT FOLLOW-UP INFORMATION FOR PCP: Patient information: Note initiated : 05/26/22 at 1:23 pm Service Date, if different from initiated Date: [] Patient: Mayo Sheridan 56 y/o M admitted on 05/21/22 for Alcohol withdrawls. Chief Complaint: [] Date of admission: 05/21/22 17:28 Discharge date: 05/26/22 Primary care physician: Nitin Solano Attending physician on admission: Micheal Parker Consults: 05/21/22 Consult to Physician [CONS] Stat Comment: Consulting Provider: Micheal Parker Reason For Exam: Physician to Consult Attending physician on discharge: Chi Roselia Pui COURSE Hospital Course Hospital course: Patient with history of alcohol abuse and withdrawal presents to the ED con cerned about alcohol withdrawal. Patient desires to get drinking. Patient was admitted to [facility] in September 2021 for alcohol withdrawal and A. fib with RVR. He did undergo a cardioversion while there. He was actually admitted at October 14 and then transferred to [facility] on the and was discharged on the . He was most recently admitted to on May 05 and was discharged on the for alcohol withdrawal and A. fib as well. Also found to have a heart failure with reduced ejection fraction of 35% on the admit at [facility]. He was discharged on digoxin and amiodarone, his diltiazem was stopped. He was started on a low-dose of lisinopril 2.5 as well as Aldactone and Lasix. At his most recent visit at I do not see amiodarone or digoxin on his record but I see diltiazem was given. It looks like his spironolactone and furosemide were stopped because of low blood pressures. He says when he was discharged he did not have anything to drink for 3 days and then he started drinking again, this was about a week ago. Also at the time he stopped taking his medications because he heard from a p syed in the past that if you are drinking there is no point taking your medications. This includes Eliquis. He says he has a history of delirium tremens and seizures from withdrawal. And carries a diagnosis of bipolar disorder. He also has a history of rectal cancer and is undergoing chemotherapy with Dr. Borges. Patient did have some sharp chest pain in the middle the night 3 nights ago which lasted for seconds otherwise no chest pain no shortness of breath. Patient started to feel withdrawal symptoms with tremors and nausea. Also complains of headaches. In the ER he was in A. fib RVR was started on a diltiazem bolus and drip with poor response. Patient given a banana bag in the ED, patient temporarily converted to normal sinus rhythm and then went back into A. fib 05/22 Patient's rhythm converted to normal sinus rhythm last night. Still on esmolol drip. We will start metoprolol and wean off the drip. P.o. diazepam and as needed IV Ativan for elevated CIWA. Leukopenia noted. Mild hyponatremia. Transaminitis. Liver ultrasound pending 05/23 Patient in severe withdrawal as needed multiple doses of Ativan. Currently in normal sinus rhythm. Continue monitor closely. Has headache and nausea but no vomiting. Shaking. 05/24: Transferred from ICU to PCU yesterday evening. CIWA score 16 this morning. c/o insomnia. c/o increased hands tremors. c/o nausea denies vomiting. c/o anxiety and agitation. Denies hallucinations. Continue CIWA protocol with Valium. Pending PT OT evaluations. Pending social worker clinical to coordinate alcohol rehab placement. 05/25: CIWA score of 10 this morning. c/o increased hands tremors. c/o nausea denies vomiting. c/o anxiety denies agitation. Denies hallucinations. Denies insomnia. Continue CIWA protocol with Valium. Pending PT OT evaluations. Pending social worker clinical to coordinate alcohol rehab placement. Downgrade from PCU to [facility] telemetry. 05/26: CIWA score of 4. Reached clinical stability. PT: home when stable. Decision made to discharge home. PT: home when stable. Patient will call to make arrangement for alcohol rehab admission. Discharge diagnosis: delirium tremens Time Spent with Patient Time attestation: Total time spent providing and/or coordinating discharge services: Time spent: Greater than 30 minutes EXAM Constitutional Vitals: Temp Pulse Resp BP Pulse Ox O2 Del Method O2 Flow Rate 36.2 C 58 L 17 113/77 95 0 05/26/22 04:59 05/26/22 04:59 05/26/22 08:25 05/26/22 08:25 05/26/22 04:59 05/25/22 19:45 05/26/22 04:59 General appearance: cooperative and no acute distress Head Head exam: Present atraumatic and normocephalic Eye Eye exam: Present EOMI and PERRL ENT ENT exam: Present mucous membranes moist, normal exam and normal external ear exam Neck Neck exam: Present normal inspection; Absent lymphadenopathy, tenderness or thyromegaly Respiratory Respiratory exam: Absent accessory muscle use, respiratory distress or wheezes Cardiovascular Cardiovascular exam: Present irregular rhythm; Absent JVD GI/Abdominal GI/Abdominal exam: Present normal bowel sounds and soft; Absent organomegaly or tenderness Rectal Rectal exam: Present deferred Extremities Exam Extremities exam: Present full ROM, normal capillary refill and normal inspection; Absent tenderness Neurological Exam Neurological exam: Present alert, CN II-XII intact and oriented X3; Absent motor sensory deficit Psychiatric Psychiatric exam: Present normal affect and normal mood; Absent anxious or depressed Skin Skin exam: Present dry and intact Discharge Data Data Completed and Pending Labs on day of discharge: Labs from last 24 hours 05/26/22 05/26/22 05:21 05:21 WBC 3.6 L RBC 3.64 L Hgb 11.4 L Hct 34.9 L MCV 95.9 MCH 31.3 MCHC 32.7 RDW 14.0 Plt Count 174 MPV 10.9 H Immature Gran % (Auto) 0.6 H Neut % (Auto) 70.6 Lymph % (Auto) 11.2 L [place] % (Auto) 14.8 H Eos % (Auto) 2.2 Baso % (Auto) 0.6 Lymph # (Auto) 0.40 L [place] # (Auto) 0.53 Eos # (Auto) 0.08 Baso # (Auto) 0.02 Immature Gran # 0.02 Absolute Neutrophils 2.54 Sodium 135 Potassium 3.3 Chloride 99 Carbon Dioxide 27 Anion Gap 9.0 BUN 10 Creatinine 0.6 L GFR Calculation 110 Glucose 84 Calcium 8.6 Magnesium 1.6 Total Bilirubin 0.3 AST 50 H ALT 8 Alkaline Phosphatase 110 Total Protein 5.8 L Albumin 3.2 Globulin 2.6 Albumin/Globulin Ratio 1.2 Discharge Plan Patient/Caregiver Discharge Instructions Activity: increase activity as tolerated Diet: Regular Diet Instructions: A-fib (Atrial Fibrillation) (GEN), Alcohol Withdrawal (GEN) Prescriptions: New Eliquis 5 mg Tablet 5 mg PO BID Qty: 60 0RF magnesium oxide 400 mg (241.3 mg magnesium) Tablet 400 mg PO BID Qty: 10 0RF folic acid 1 mg Tablet 1 mg PO DAILY Qty: 30 0RF digoxin 125 mcg (0.125 mg) Tablet 125 mcg PO DAILY@1400 Qty: 30 0RF furosemide 20 mg Tablet 20 mg PO DAILY Qty: 30 0RF lisinopril 2.5 mg Tablet 2.5 mg PO DAILY Qty: 30 0RF metoprolol tartrate 25 mg Tablet 12.5 mg PO BID Qty: 60 0RF Thera M Plus (ferrous fumarat) 9 mg iron-400 mcg Tablet 1 tab PO DAILY Qty: 10 0RF spironolactone 25 mg Tablet 25 mg PO DAILY Qty: 30 0RF potassium chloride [Klor-Con M20] 20 mEq Tablet,Er Particles/Crystals 20 meq PO BIDCC Qty: 20 0RF pantoprazole [address] For Susp In Packet 40 mg PO QAMAC Qty: 30 0RF thiamine mononitrate (vit B1) 100 mg Tablet 100 mg PO DAILY Qty: 10 0RF Continued lamotrigine 150 mg tablet 1 tab PO QDAY carbidopa-levodopa 50-200 mg tablet extended release 1 tab PO HS Discontinued diltiazem HCl 120 mg capsule,extended release 24hr 1 cap PO QDAY Follow Up Plan Follow up with: Devendra Seay PA-C [Physician [employer]ography Faculty Member] - 06/06/22 2:20 pm (Please arrive at 2:00 pm) Patient Disposition: Home, Self-Care Rehab Potential: Good I certify that the patient requires SNF services: No Overall status at discharge: patient is back to baseline Discharge Orders: Discharge Order (Routine); Ordered 05/26/22 Ordered By: Zafar AREVALO VTE Deep Vein Thrombosis/Pulmonary Embolism Present on Admission: No
[2022-05-26] MEDS ORDERED: HEPARIN SODIUM,PORCINE/PF 500 UNIT/5 ML SYRINGE IV SCH (14:00)
[2022-05-26] MEDS: DIGOXIN 125 MCG TABLET PO SCH (14:00)
== END 2022-05-26 14:40 | disposition home or self-care (01) | DRG 897 ==
LOC: ED 07:31 → ICU 17:28
PROVIDERS: ADMIT Internal Medicine; ATTEND Internal Medicine